=== PATIENT | female | born 1965 | race Two or more races ===

== ENCOUNTER 2020-08-28 08:06 | Outpatient (REF) | payer OTHER, SELFPAY ==
--- NOTE | ~2020-08-28 | MM_ITS ---
EXAMINATION: MM SCREENING DIGITAL BREAST TOMOSYNTHESIS, BILATERAL CLINICAL INFORMATION: Screening. Asymptomatic. The lifetime risk of breast cancer based on the Tyrer-Cuzick Model is 19%. COMPARISON: Mammography: 08/12/2019, 08/06/2018, 12/14/2017, 06/19/2017 TECHNIQUE: Digital breast tomosynthesis is performed in both the craniocaudal and mediolateral oblique views along with computer-aided detection (CAD). Synthesized 2D images are generated from the tomosynthesis. FINDINGS: There are scattered areas of fibroglandular density (ACR BI-RADS breast composition Category b). There are no significant masses, abnormal calcifications, or other abnormalities. Parenchymal pattern is similar to prior studies. No developing density. No significant changes. MM/MM tomosynthesis screening BI IMPRESSION: No mammographic evidence of malignancy. ASSESSMENT: BI-RADS 1: Negative RECOMMENDATION: Routine annual mammography screening. This patient's information was entered into a reminder system with a target due date for their next mammogram.
== END 2020-08-28 08:07 | disposition home or self-care (01) ==
LOC: HO.MAMMO 08:06
PROVIDERS: PCP Internal Medicine; Visit Provider Internal Medicine
DX: Z12.31 Encounter for screening mammogram for malignant neoplasm of breast (principal)
CPT/HCPCS: 77063; 77067

== ENCOUNTER 2020-09-17 08:55 | Outpatient (REF) | payer OTHER, SELFPAY ==
--- NOTE | ~2020-09-17 | XR_ITS ---
EXAMINATION: XR CERVICAL SPINE: 4 VIEWS XR THORACIC SPINE: 2 VIEWS XR LUMBAR SPINE: 3 VIEWS XR SHOULDERS, BILATERAL: 4 VIEWS EACH CLINICAL INFORMATION: Pain COMPARISON: None XR/XR cervical spine 2V FINDINGS/IMPRESSION: Cervical spine: No acute fracture or traumatic malalignment. There is a 2 mm anterolisthesis of C4 on C5 related to mild facet arthropathy which is present throughout the cervical spine. Endplate osteophytes and loss of disc space height noted at C5-C6 and C6-C7. Paraspinal soft tissues unremarkable. Thoracic spine: No acute fracture or traumatic malalignment. Mild levoconvex thoracic curvature, apex left at T9. Vertebral body heights maintained. Small endplate osteophytes project anteriorly from mid thoracic spine. Paraspinal soft tissues unremarkable. Lumbar spine: No acute fracture or traumatic malalignment. Mild dextro convex lumbar curvature, apex right at L3. Vertebral body heights maintained. Small endplate ossified present throughout the lumbar spine. Moderate loss of disc space height at L5-S1. Mild facet arthropathy at L4-L5 and L5-S1. Soft tissues unremarkable. Bilateral shoulders: No acute fracture or dislocation. Small marginal osteophytes present along the acromioclavicular joints bilaterally. Tiny marginal osteophytes along the inferior LEFT glenohumeral joint. Soft tissues unremarkable.
--- NOTE | ~2020-09-17 | XR_ITS ---
EXAMINATION: XR CERVICAL SPINE: 4 VIEWS XR THORACIC SPINE: 2 VIEWS XR LUMBAR SPINE: 3 VIEWS XR SHOULDERS, BILATERAL: 4 VIEWS EACH CLINICAL INFORMATION: Pain COMPARISON: None XR/XR lumbar spine 2-3V FINDINGS/IMPRESSION: Cervical spine: No acute fracture or traumatic malalignment. There is a 2 mm anterolisthesis of C4 on C5 related to mild facet arthropathy which is present throughout the cervical spine. Endplate osteophytes and loss of disc space height noted at C5-C6 and C6-C7. Paraspinal soft tissues unremarkable. Thoracic spine: No acute fracture or traumatic malalignment. Mild levoconvex thoracic curvature, apex left at T9. Vertebral body heights maintained. Small endplate osteophytes project anteriorly from mid thoracic spine. Paraspinal soft tissues unremarkable. Lumbar spine: No acute fracture or traumatic malalignment. Mild dextro convex lumbar curvature, apex right at L3. Vertebral body heights maintained. Small endplate ossified present throughout the lumbar spine. Moderate loss of disc space height at L5-S1. Mild facet arthropathy at L4-L5 and L5-S1. Soft tissues unremarkable. Bilateral shoulders: No acute fracture or dislocation. Small marginal osteophytes present along the acromioclavicular joints bilaterally. Tiny marginal osteophytes along the inferior LEFT glenohumeral joint. Soft tissues unremarkable.
--- NOTE | ~2020-09-17 | XR_ITS ---
EXAMINATION: XR CERVICAL SPINE: 4 VIEWS XR THORACIC SPINE: 2 VIEWS XR LUMBAR SPINE: 3 VIEWS XR SHOULDERS, BILATERAL: 4 VIEWS EACH CLINICAL INFORMATION: Pain COMPARISON: None XR/XR shoulder RT min 2V FINDINGS/IMPRESSION: Cervical spine: No acute fracture or traumatic malalignment. There is a 2 mm anterolisthesis of C4 on C5 related to mild facet arthropathy which is present throughout the cervical spine. Endplate osteophytes and loss of disc space height noted at C5-C6 and C6-C7. Paraspinal soft tissues unremarkable. Thoracic spine: No acute fracture or traumatic malalignment. Mild levoconvex thoracic curvature, apex left at T9. Vertebral body heights maintained. Small endplate osteophytes project anteriorly from mid thoracic spine. Paraspinal soft tissues unremarkable. Lumbar spine: No acute fracture or traumatic malalignment. Mild dextro convex lumbar curvature, apex right at L3. Vertebral body heights maintained. Small endplate ossified present throughout the lumbar spine. Moderate loss of disc space height at L5-S1. Mild facet arthropathy at L4-L5 and L5-S1. Soft tissues unremarkable. Bilateral shoulders: No acute fracture or dislocation. Small marginal osteophytes present along the acromioclavicular joints bilaterally. Tiny marginal osteophytes along the inferior LEFT glenohumeral joint. Soft tissues unremarkable.
--- NOTE | ~2020-09-17 | XR_ITS ---
EXAMINATION: XR CERVICAL SPINE: 4 VIEWS XR THORACIC SPINE: 2 VIEWS XR LUMBAR SPINE: 3 VIEWS XR SHOULDERS, BILATERAL: 4 VIEWS EACH CLINICAL INFORMATION: Pain COMPARISON: None XR/XR thoracic spine 2V FINDINGS/IMPRESSION: Cervical spine: No acute fracture or traumatic malalignment. There is a 2 mm anterolisthesis of C4 on C5 related to mild facet arthropathy which is present throughout the cervical spine. Endplate osteophytes and loss of disc space height noted at C5-C6 and C6-C7. Paraspinal soft tissues unremarkable. Thoracic spine: No acute fracture or traumatic malalignment. Mild levoconvex thoracic curvature, apex left at T9. Vertebral body heights maintained. Small endplate osteophytes project anteriorly from mid thoracic spine. Paraspinal soft tissues unremarkable. Lumbar spine: No acute fracture or traumatic malalignment. Mild dextro convex lumbar curvature, apex right at L3. Vertebral body heights maintained. Small endplate ossified present throughout the lumbar spine. Moderate loss of disc space height at L5-S1. Mild facet arthropathy at L4-L5 and L5-S1. Soft tissues unremarkable. Bilateral shoulders: No acute fracture or dislocation. Small marginal osteophytes present along the acromioclavicular joints bilaterally. Tiny marginal osteophytes along the inferior LEFT glenohumeral joint. Soft tissues unremarkable.
--- NOTE | ~2020-09-17 | XR_ITS ---
EXAMINATION: XR CERVICAL SPINE: 4 VIEWS XR THORACIC SPINE: 2 VIEWS XR LUMBAR SPINE: 3 VIEWS XR SHOULDERS, BILATERAL: 4 VIEWS EACH CLINICAL INFORMATION: Pain COMPARISON: None XR/XR shoulder LT min 2V FINDINGS/IMPRESSION: Cervical spine: No acute fracture or traumatic malalignment. There is a 2 mm anterolisthesis of C4 on C5 related to mild facet arthropathy which is present throughout the cervical spine. Endplate osteophytes and loss of disc space height noted at C5-C6 and C6-C7. Paraspinal soft tissues unremarkable. Thoracic spine: No acute fracture or traumatic malalignment. Mild levoconvex thoracic curvature, apex left at T9. Vertebral body heights maintained. Small endplate osteophytes project anteriorly from mid thoracic spine. Paraspinal soft tissues unremarkable. Lumbar spine: No acute fracture or traumatic malalignment. Mild dextro convex lumbar curvature, apex right at L3. Vertebral body heights maintained. Small endplate ossified present throughout the lumbar spine. Moderate loss of disc space height at L5-S1. Mild facet arthropathy at L4-L5 and L5-S1. Soft tissues unremarkable. Bilateral shoulders: No acute fracture or dislocation. Small marginal osteophytes present along the acromioclavicular joints bilaterally. Tiny marginal osteophytes along the inferior LEFT glenohumeral joint. Soft tissues unremarkable.
[2020-09-17 09:46] LABS: MANUAL DIFF FLAG NO
[2020-09-17 09:52] LABS: Basophils Percent Auto 0.6 % (0-2); Eosinophils Absolute Auto 0.1 X10*3/uL (0.0-0.4); Hematocrit 42.5 % (37-47); Hemoglobin 13.7 g/dl (12.0-16.0); Imm Gran Abs Auto 0.02 X10*3/uL (0.00-0.03); Imm Gran Pct Auto 0.3 % (0.0-0.4); Lymphocytes Absolute Auto 1.9 X10*3/uL (1.2-4.9); Lymphocytes Percent Auto 27.4 % (20-40); Mean Corpuscular HGB Conc 32.2 g/dl (31.0-35.0); Mean Corpuscular Hemoglobin 30.2 pg (27.0-33.0); Mean Corpuscular Volume 93.8 fL (80-98); Monocytes Absolute Auto 0.6 X10*3/uL (0.1-1.2); Monocytes Percent Auto 8.1 % (2-11); Neutrophils Absolute Auto 4.4 X10*3/uL (2.0-8.3); Neutrophils Percent Auto 62.6 % (45-73); Platelet Count 237 X10*3/uL (160-400); Red Blood Count 4.53 X10*6/uL (4.20-5.50); Red Cell Distribution Width 11.9 % (11.0-16.0); White Blood Count 7.1 X10*3/uL (4.8-10.8)
[2020-09-17 10:29] LABS: Alanine Aminotransferase 21 U/L (0-31); Alkaline Phosphatase 76 U/L (39-117); Anion Gap 11 (12-20); Aspartate Amino Transferase 21 U/L (5-31); Bilirubin Total 0.5 mg/dL (0.0-1.0); Blood Urea Nitrogen 11 mg/dL (9-16); Calcium 9.5 mg/dL (8.4-10.2); Carbon Dioxide 30 mmol/L (22-29); Chloride 104 mmol/L (96-108); Cholesterol 179 mg/dL; Estimated Glomerular Filt Rate > 60; Glucose Fasting 91 mg/dL (60-99); HDL Cholesterol 55 mg/dL; LDL Cholesterol Calculated 108 mg/dl; Sodium 140 mmol/L (135-145); Total Protein 6.6 g/dL (6.5-8.0); Triglycerides 81 mg/dL
[2020-09-17 10:44] LABS: Thyroid Stimulating Hormone 2.34 uIU/mL (0.32-4.0)
[2020-09-22 13:35] LABS: Vitamin D 25-OH, D2 <4 ng/mL; Vitamin D 25-OH, D3 32 ng/mL; Vitamin D 25-OH, Total 32 ng/mL (30-100)
== END 2020-09-17 08:56 | disposition home or self-care (01) ==
LOC: HO.LAB 08:55
PROVIDERS: PCP Internal Medicine; Visit Provider Internal Medicine
DX: M54.6 Pain in thoracic spine (principal); M54.5 Low back pain; M54.2 Cervicalgia; M25.511 Pain in right shoulder; M25.512 Pain in left shoulder; E78.5 Hyperlipidemia, unspecified; D64.9 Anemia, unspecified; E55.9 Vitamin D deficiency, unspecified; E66.3 Overweight
CPT/HCPCS: 36415; 72040; 72070; 72100; 73030; 80053; 80061; 82306; 84443; 85025

== ENCOUNTER 2020-10-12 12:37 | Outpatient (REF) | payer OTHER, SELFPAY ==
--- NOTE | ~2020-10-12 | XR_ITS ---
EXAMINATION: XR THORACIC SPINE CLINICAL INFORMATION: Back pain. COMPARISON: Thoracic spine radiographs dated 09/17/2020. TECHNIQUE: Mild levocurvature of the thoracic spine, unchanged. FINDINGS: The thoracic kyphosis is maintained. No acute fracture or subluxation. No loss of vertebral body height. Mild multilevel loss of intervertebral disc height with small anterior endplate osteophytes. No lytic or blastic osseous lesion. The visualized lungs are clear. XR/XR thoracic spine 3V IMPRESSION: Mild multilevel degenerative disc disease, similar when compared to the recent radiographs. No acute osseous abnormality.
== END 2020-10-12 12:38 | disposition home or self-care (01) ==
LOC: HO.HMGCX 12:37
PROVIDERS: PCP Internal Medicine; Visit Provider Physician Assistant Medical
DX: M54.9 Dorsalgia, unspecified (principal)
CPT/HCPCS: 72072

== ENCOUNTER 2020-11-09 11:00 | Outpatient (RCR) | payer OTHER, SELFPAY ==
--- NOTE | 2020-11-09 12:40 | MHC.PT.EP ---
[facility] [place] Office [place] [facility] [place] Office [address] Danica [place] [address] [phone] F: [phone] F: [phone] F: [phone] F: [phone] Physical Therapy Plan of Care Date of Evaluation: Date of Surgery: n/a Diagnosis: Back pain, B shoulder pain Assessment: Pt is 55 year old female who presents with neck/upper back pain and B shoulder pain R>L. She presents today with increased pain levels, decreased UE strength, impaired posture, and increase ttp of B UT. 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 Clinical presentation is consistent with posture related neck and shoulder pain and she would benefit from skilled PT to address her current impairments to allow return to PLOF. Frequency and Duration: The patient will be seen 2x per week x 4 weeks Short Term Goals: Pt will demonstrate pain <4/10 at rest in 2 weeks. Pt will demonstrate min to no pain with cervical AROM in available range in 2 weeks. Pt will demonstrate min to no pain with B shoulder AROM in available range in 2 weeks. Pt will demonstrate improved shoulder strength by 1/3 MMT for improved strength for duties at home and work in 2 weeks. Pt will demonstrate <2 cues in one session of PT for posture in 2 weeks. 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 Pt will demonstrate ability to complete a day of work with pain <3/10 in 4 weeks for improved tolerance to work. Pt will demonstrate ability to reach [place] with min to no pain in 4 weeks for improved tolerance to dressing. Treatment Plan: Modalities to reduce pain, spasms and effusion. Manual therapy to restore motion and function. Therapeutic exercise to improve strength and flexibility. Neuromuscular re-education for posture and balance. Therapeutic activities to return to functional activities of daily living. Electronically signed by: Kitty Jones, PT, DPT, ATC Please sign and return to therapist. Thank you for your referral.
--- NOTE | 2020-11-24 10:42 | MHC.PT.DC ---
[facility] [place] [facility] [place] [facility] [place] [facility] [address] Danica [place] [address] [phone] F: [phone] F: [phone] F: [phone] F: [phone] Physical Therapy Discharge Report Diagnosis: Back pain, B shoulder pain Date of Surgery: n/a Date of Evaluation: 11/09/20 Date of Discharge: Treatments to Date: 1 Cancellations to Date: No Shows to Date: 3 Discharge Status: Visit Non-compliance Discharge Summary: Pt no showed last 3 scheduled visits, status unknown. [ End ] Electronically signed by: Kitty Jones PT, DPT, ATC Please sign and return to therapist. Thank you for your referral.
== END 2020-11-24 10:42 | disposition home or self-care (01) ==
LOC: HO.PT 11:00
PROVIDERS: PCP Internal Medicine; Visit Provider Internal Medicine
DX: M25.511 Pain in right shoulder (principal); M25.512 Pain in left shoulder; M54.5 Low back pain
CPT/HCPCS: 97112; 97140; 97161

== ENCOUNTER 2021-08-17 10:42 | Outpatient (REF) | payer OTHER, SELFPAY | END 2021-08-17 10:43 | disposition home or self-care (01) | LOC: HO.MAMMO 10:42 | PROVIDERS: Visit Provider Internal Medicine | DX: Z13.89 Encounter for screening for other disorder (principal) ==

== ENCOUNTER 2021-09-01 09:05 | Outpatient (REF) | payer OTHER, SELFPAY ==
--- NOTE | ~2021-09-01 | MM_ITS ---
EXAMINATION: MM SCREENING DIGITAL BREAST TOMOSYNTHESIS, BILATERAL CLINICAL INFORMATION: Screening. Asymptomatic. The lifetime risk of breast cancer based on the Tyrer-Cuzick Model is 17%. COMPARISON: Mammography: 08/28/2020, 08/12/2019, 08/06/2018 TECHNIQUE: Digital breast tomosynthesis is performed in both the craniocaudal and mediolateral oblique views along with computer-aided detection (CAD). Synthesized 2D images are generated from the tomosynthesis. FINDINGS: There are scattered areas of fibroglandular density (ACR BI-RADS breast composition Category b). There are no significant masses, abnormal calcifications, or other abnormalities. The axilla and skin contours are unremarkable. No significant changes. MM/MM tomosynthesis screening BI IMPRESSION: No mammographic evidence of malignancy. ASSESSMENT: BI-RADS 1: Negative RECOMMENDATION: Routine annual mammography screening. This patient's information was entered into a reminder system with a target due date for their next mammogram.
== END 2021-09-01 09:06 | disposition home or self-care (01) ==
LOC: HO.MAMMO 09:05
PROVIDERS: Visit Provider Internal Medicine
DX: Z12.31 Encounter for screening mammogram for malignant neoplasm of breast (principal)
CPT/HCPCS: 77063; 77067

== ENCOUNTER 2022-01-11 10:23 | Outpatient (REF) | payer OTHER, SELFPAY ==
[2022-01-11 10:33] LABS: MANUAL DIFF FLAG NO
[2022-01-11 11:07] LABS: Basophils Absolute Auto 0.1 X10*3/uL (0.0-0.2); Basophils Percent Auto 0.8 % (0-2); Eosinophils Absolute Auto 0.1 X10*3/uL (0.0-0.4); Hematocrit 43.6 % (37.0-47.0); Hemoglobin 14.2 g/dl (12.0-16.0); Imm Gran Abs Auto 0.02 X10*3/uL (0.00-0.03); Imm Gran Pct Auto 0.2 % (0.0-0.4); Lymphocytes Absolute Auto 2.2 X10*3/uL (1.2-4.9); Lymphocytes Percent Auto 26.1 % (20-40); Mean Corpuscular HGB Conc 32.6 g/dl (31.0-35.0); Mean Corpuscular Volume 92.2 fL (80.0-98.0); Mean Platelet Volume 10.9 fL (9.4-12.3); Monocytes Absolute Auto 0.6 X10*3/uL (0.1-1.2); Monocytes Percent Auto 7.5 % (2-11); Neutrophils Absolute Auto 5.3 x10*3/uL (2.0-8.3); Neutrophils Percent Auto 64.4 % (45-73); Platelet Count 298 X10*3/uL (160-400); Red Blood Count 4.73 X10*6/uL (4.20-5.50); Red Cell Distribution Width 12.5 % (11.0-16.0); White Blood Count 8.3 X10*3/uL (4.8-10.8)
[2022-01-11 12:07] LABS: Alanine Aminotransferase 22 U/L (0-31); Albumin Level 4.1 g/dL (3.5-5.0); Alkaline Phosphatase 78 U/L (39-117); Anion Gap 13 (12-20); Aspartate Amino Transferase 22 U/L (5-31); Bilirubin Total 0.4 mg/dL (0.0-1.0); Blood Urea Nitrogen 14 mg/dL (9-16); Calcium 9.4 mg/dL (8.4-10.2); Carbon Dioxide 30 mmol/L (22-29); Chloride 106 mmol/L (96-108); Cholesterol 230 mg/dL; Estimated Glomerular Filt Rate > 60; Glucose Fasting 88 mg/dL (60-99); HDL Cholesterol 60 mg/dL; LDL Cholesterol Calculated 154 mg/dl; Potassium 5.2 mmol/L (3.3-5.1); Sodium 144 mmol/L (135-145); Thyroid Stimulating Hormone 1.47 uIU/mL (0.32-4.0); Total Protein 6.9 g/dL (6.5-8.0); Triglycerides 81 mg/dL; Vitamin D 25-OH Total 37.1 ng/mL (>30)
== END 2022-01-11 10:24 | disposition home or self-care (01) ==
LOC: HO.LAB 10:23
PROVIDERS: PCP Internal Medicine; Visit Provider Internal Medicine
DX: Z00.00 Encounter for general adult medical examination without abnormal findings (principal); E78.5 Hyperlipidemia, unspecified; R53.82 Chronic fatigue, unspecified
CPT/HCPCS: 36415; 80053; 80061; 82306; 84443; 85025

== ENCOUNTER 2022-01-26 11:30 | Outpatient (REF) | payer OTHER, SELFPAY ==
[2022-01-26 13:08] LABS: Alanine Aminotransferase 42 U/L (0-31); Albumin Level 3.9 g/dL (3.5-5.0); Alkaline Phosphatase 65 U/L (39-117); Anion Gap 11 (12-20); Aspartate Amino Transferase 26 U/L (5-31); Bilirubin Total 0.5 mg/dL (0.0-1.0); Blood Urea Nitrogen 10 mg/dL (9-16); Calcium 9.5 mg/dL (8.4-10.2); Carbon Dioxide 31 mmol/L (22-29); Chloride 104 mmol/L (96-108); Estimated Glomerular Filt Rate > 60; Glucose Random 84 mg/dL (60-115); Potassium 4.9 mmol/L (3.3-5.1); Sodium 141 mmol/L (135-145); Total Protein 6.6 g/dL (6.5-8.0)
== END 2022-01-26 11:31 | disposition home or self-care (01) ==
LOC: HO.LAB 11:30
PROVIDERS: PCP Internal Medicine; Visit Provider Internal Medicine
DX: E87.5 Hyperkalemia (principal)
CPT/HCPCS: 36415; 80053

== ENCOUNTER 2022-09-19 11:40 | Outpatient (REF) | payer OTHER, SELFPAY ==
--- NOTE | ~2022-09-19 | MM_ITS ---
EXAMINATION: MM SCREENING DIGITAL BREAST TOMOSYNTHESIS, BILATERAL CLINICAL INFORMATION: Screening. Asymptomatic. The lifetime risk of breast cancer based on the Tyrer-Cuzick Model is 16.8%. COMPARISON: Mammography: This study is compared with prior exams dating back to 2018. TECHNIQUE: Digital breast tomosynthesis is performed in both the craniocaudal and mediolateral oblique views along with computer-aided detection (CAD). Synthesized 2D images are generated from the tomosynthesis. FINDINGS: There are scattered areas of fibroglandular density (ACR BI-RADS breast composition Category b). There are no significant masses, abnormal calcifications, or other abnormalities. MM/MM tomosynthesis screening BI IMPRESSION: No mammographic evidence of malignancy. ASSESSMENT: BI-RADS BI-RADS 1 - Negative RECOMMENDATION: Routine annual mammography screening. 1 year F/U This examination should not preclude the clinical evaluation of a suspicious palpable abnormality. This patient's information was entered into a reminder system with a target due date for their next mammogram.
== END 2022-09-19 11:41 | disposition home or self-care (01) ==
LOC: HO.MAMMO 11:40
PROVIDERS: PCP Internal Medicine; Visit Provider Internal Medicine
DX: Z12.31 Encounter for screening mammogram for malignant neoplasm of breast (principal)
CPT/HCPCS: 77063; 77067

== ENCOUNTER → 2022-09-19 11:45 | Outpatient (BNV) | payer OTHER, SELFPAY | PROVIDERS: PCP Internal Medicine; Visit Provider Radiology Diagnostic Radiology | DX: Z12.31 Encounter for screening mammogram for malignant neoplasm of breast (principal) | CPT/HCPCS: 77063; 77067 ==

== ENCOUNTER 2022-09-29 09:02 | Outpatient (AMB) | payer OTHER, SELFPAY ==
--- NOTE | 2022-09-29 09:08 | A.OFFPC_ITS ---
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 Accompanied by: Self / Same As Patient Allergies No Known Allergies [No Known Allergies*] Allergy (Verified 09/29/22 09:21) Medication List - Last Reconciled 09/29/22 by Veena Pisano MD albuterol sulfate 2.5 mg inhalation Q6H budesonide 90 mcg/actuation 1 inh inhalation BID 30 days Tobacco use date assessed: 09/29/22 Dental Screening Dental Screen Date: 09/29/22 Did you have a dental visit in the last 12 months?: Yes Did you have a dental problem in the last 6 months where you did not have access to dental care?: No Was dental information given to patient?: Patient has dentist HPI HPI Comments History of Present Illness Details This is a 56-year-old female with mild major depression that comes for her physical exam. Depression is follow by counseling and she declines any medications. Last mammogram was last month. No need for Pap smears due to hysterectomy. Last colonoscopy was 2018 and was normal. Denies any chest pain or shortness of breath. 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 1. Little interest or pleasure in doing things: several days 2. Feeling down, depressed, or hopeless: several days 3. Trouble falling or staying asleep, or sleeping too much: several days 4. Feeling tired or having little energy: several days 5. Poor appetite or overeating: not at all 6. Feeling bad about yourself - or that you are a failure or have let yourself or your family down: not at all 7. Trouble concentrating on things, such as reading the newspaper or watching television: not at all 8. Moving or speaking so slowly that other people could have noticed. Or the opposite - being so fidgety or restless that you have been moving around a lot more than usual: several days 9. Thoughts that you would be better off or of hurting yourself in some way: not at all Total score: 5 Depression Screening Interpretation: Positive Depression Screening Follow-up: Existing condition, In treatment and Community Mental Health Worker F/U 77976 - PHQ-9 Billing: Yes Source: Developed by Drs. Floyd Garcia, Yumiko Angelo, David Rosales and colleagues, with an educational stanley from [employer]. Thrive Questionnaire Date Thrive assessed: 09/29/22 I am a: Patient What is your living situation today?: I have a steady place to live Within the past 12 months, did the food you bought not last and you didn't have the money to get more?: Never true Within the past 12 months, did you worry whether your food would run out before you got money to buy more?: Never true Do you have trouble paying for medicines?: No Do you have trouble getting transportation to medical appointments?: No Do you have trouble paying your heating and electricity bill?: No Do you have trouble taking care of your child, family member or friend?: No Do you have trouble with day-to-day activities such as bathing, preparing meals, shopping, managing finances, etc.?: No Are you currently unemployed and looking for a job?: No Are you interested in more education?: No Please select the resources that you would like help with: None Currently or been in a relationship where the following occur: no concerns reported AUDIT C Alcohol Use Questionnaire (AUDIT-C) 1. How often do you have a drink containing alcohol?: Never Total Score: 0 NATHAN-7 AMB Questionnaire NATHAN-7 Date NATHAN - 7 assessed: 09/29/22 Feeling nervous, anxious, or on edge: 1 = Several days Not being able to stop or control worryin = Not at all Worrying too much about different things: 1 = Several days Trouble relaxin = Not at all Being so restless that it is hard to sit still: 0 = Not at all Becoming easily annoyed or irritable: 0 = Not at all Feeling afraid as if something awful might happen: 0 = Not at all Total NATHAN-7 score (0-4 normal; 5-9 mild; 10-14 moderate; 15-21 severe): 2 Source: Developed by Drs. Floyd Garcia, Yumiko Angelo, David Rosales and colleagues, with an educational stanley from [employer]. NATHAN-7 Assessment Billing NATHAN-7 Assessment Tool: NATHAN-7 Assessment 26935 Review of Systems Const All systems reviewed & are unremarkable except as noted in HPI and below Eyes Reports no additional complaints, Denies change in vision and Denies other visual disturbances Card Denies chest pain at rest, Denies chest pain with activity, Denies edema, Denies irregular heart rhythm, Denies claudication, Denies dyspnea, Denies dyspnea on exertion, Denies orthopnea, Denies paroxysmal nocturnal dyspnea and Denies slow heart rate Resp Denies cough, Denies dyspnea and Denies dyspnea on exertion GI Denies abdominal pain, Denies change in bowel habits, Denies excessive flatus, Denies nausea and Denies vomiting Denies urinary incontinence, Denies urinary hesitancy and Denies urinary urgency Musc Denies abnormal gait, Denies atrophy, Denies deformity and Denies limited range of motion Skin/Breast Denies bleeding lesions, Denies changing lesions and Denies rash Neuro Denies abnormal gait and Denies lack of coordination Physical exam (Primary Care) Vital Signs: Last Vital Signs BP 110/80 09/29/22 09:09 BMI result Body Mass Index 26.3 Tobacco/Smoking Status: Tobacco use Status Tobacco use date assessed 09/29/22 09/29/22 09:14 Patient Tobacco Use Status Never used Tobacco 09/29/22 09:11 e-Cigarette/Vaping Use Never Used 09/29/22 09:11 PHQ-9: PHQ-9 Score PHQ-9: Total score 5 09/29/22 09:28 Depression Screening Interpretation: Positive Depression Screening Follow-up: Ex isting condition, In treatment and Community Mental Health Worker F/U Thrive Assessment: Date of Thrive Assessment Date Thrive assessed 09/29/22 09/29/22 09:14 Currently or been in a relationship where the following occur: no concerns reported Const Orientation/consciousness: patient oriented x3 HENMT Head: Yes normal to inspection, Yes normocephalic and Yes atraumatic Ears: external ears normal Eyes General: appearance normal, both eyes and all related structures Eyelids: Yes eyelids normal Conjunctivae: conjunctivae normal Neck Neck: Yes normal visual inspection and Yes supple Resp Effort & Inspection: normal respiratory effort Auscultation: clear to auscultation bilaterally Cardio Jugular venous distension: no JVD Rate: regular rate Rhythm: regular rhythm Heart sounds: S1 normal heart sound present and S2 normal heart sound present GI Inspection: Yes normal to inspection Palpation (GI): Soft to palpation and nontender Auscultation: normal bowel sounds Skin General skin exam: no rashes or lesions noted Neuro General: patient oriented x3 and no focal motor deficits Extrem General: Yes full ROM Psych Appearance: grossly normal Assessment and Plan Assessment & Plan (1) Physical exam: Code(s): Z00.00 - Encounter for general adult medical examination without abnormal findings Plan: R repeat in a year (2) Mild recurrent major depression: Code(s): F33.0 - Major depressive disorder, recurrent, mild Plan: Continue counseling. Orders: Orders Comprehensive [place]. Panel Fast Today E78.00 - Pure hypercholesterolemia, unspecified Lipid Panel Today E78.5 - Hyperlipidemia, unspecified Medications: New terbinafine HCl 250 mg PO DAILY 90 tabs 0RF 90 days B35.1 - Tinea unguium Coding Level of Care Code Est Pt Prev Care 40-64y(64987) Diagnoses Physical exam Z00.00 Mild recurrent major depression F33.0 Additional Codes NATHAN-7 Assessment Billing - NATHAN-7 Assessment Tool: NATHAN-7 Assessment [id number] ([id number]) Time Spent (min) 32
[2022-09-29 09:09] VITALS: BP 110/80; BMI 26.3
== END 2022-09-29 09:36 | disposition home or self-care (01) ==
PROVIDERS: PCP Internal Medicine; Visit Provider Internal Medicine
DX: Z00.00 Encounter for general adult medical examination without abnormal findings (principal); F33.0 Major depressive disorder, recurrent, mild
CPT/HCPCS: 99396

== ENCOUNTER 2022-10-06 10:08 | Outpatient (REF) | payer OTHER, SELFPAY ==
[2022-10-06 11:10] LABS: Alanine Aminotransferase 16 U/L (0-31); Albumin Level 3.9 g/dL (3.5-5.0); Alkaline Phosphatase 78 U/L (39-117); Anion Gap 8 (12-20); Aspartate Amino Transferase 17 U/L (5-31); Bilirubin Total 0.4 mg/dL (0.0-1.0); Blood Urea Nitrogen 12 mg/dL (9-16); Calcium 9.7 mg/dL (8.4-10.2); Carbon Dioxide 30 mmol/L (22-29); Chloride 107 mmol/L (96-108); Cholesterol 192 mg/dL; Estimated Glomerular Filt Rate > 60; Glucose Fasting 94 mg/dL (60-99); HDL Cholesterol 50 mg/dL; LDL Cholesterol Calculated 119 mg/dl; Potassium 4.3 mmol/L (3.3-5.1); Sodium 141 mmol/L (135-145); Total Protein 6.9 g/dL (6.5-8.0); Triglycerides 119 mg/dL
== END 2022-10-06 10:09 | disposition home or self-care (01) ==
LOC: HO.LAB 10:08
PROVIDERS: PCP Internal Medicine; Visit Provider Internal Medicine
DX: E78.5 Hyperlipidemia, unspecified (principal); E78.00 Pure hypercholesterolemia, unspecified
CPT/HCPCS: 36415; 80053; 80061

== ENCOUNTER 2023-01-06 15:21 | Outpatient (AMB) | payer OTHER, SELFPAY ==
[2023-01-06 15:22] VITALS: BP 122/78; PULSE 72; TEMP 36.6; O2SAT 99; BMI 26.3
--- NOTE | 2023-01-06 15:22 | MHC.OFFWIV ---
Intake Vital Signs 01/06/23 15:22 Height 5 ft 6 in Weight 163 lb BMI 26.3 BP 122/78 Blood Pressure Location Lt brachial Position Standing Pulse 72 Pulse Source Pulse Oximeter Temp 97.8 F Temp Source Temporal Artery Scan Pulse Oximetry (%) 99 Intake Visit Reasons: EST/back pain (lobby) Intake Note: pt is here for c/o back pain due to fall today Patient Tobacco Use Status: Never used Tobacco Allergies No Known Allergies [No Known Allergies*] Allergy (Verified 01/06/23 15:22) Do you need a note to return to daycare/school/sports/work: Yes HPI HPI Comments History of Present Illness Details This is a 57-year-old female who presents to the office today for sick visit. Patient complaining of acute onset right-sided low back pain that began earlier today. Patient states she bent over while cleaning her house and then stood up quickly and immediately felt pain in her right low back. She denies any numbness/weakness/paresthesias of her extremities. She denies any bowel/bladder incontinence/retention. She denies any saddle anesthesias. 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 Current occupational exposures/hazards: No Cognitive needs: No Hearing needs: No Vision needs: No Review of Systems Const All systems reviewed & are unremarkable except as noted in HPI and below Reports no additional complaints Eyes Reports no additional complaints ENT Reports no additional complaints Card Reports no additional complaints Resp Reports no additional complaints GI Reports no additional complaints Reports no additional complaints Musc Reports no additional complaints Skin/Breast Reports system reviewed and no additional complaints, except as documented Neuro Reports no additional complaints Psych Reports no additional complaints Endo Reports no additional complaints Girish/Lymph Reports no additional complaints Aller/Immun Reports no additional complaints Physical Exam Const Other: Vital signs reviewed. Constitutional: Non-toxic appearing. No acute distress. Well-developed and well-nourished. HEENT: Normocephalic and atraumatic. Skin: Warm and dry. No rashes or lesions noted. Neck: Full and painless range of motion. No cervical lymphadenopathy. Cardio: Regular rate. No lower extremity edema. No JVD. Pulmonary: No respiratory distress. No accessory muscle usage. Gastrointestinal: Soft, nontender, and nondistended in all 4 quadrants. Musculoskeletal: The patient is walking with an antalgic gait. She has tenderness to palpation of the right lumbar paraspinal musculature as well as palpable muscle spasms. No midline or spinous process tenderness to palpation. Neuro: Alert and oriented x4. Cranial nerves 2-12 grossly intact. No focal deficits appreciated. Psych: Normal mood and affect. Assessment & Plan Assessment & Plan (1) Lumbar paraspinal muscle spasm: Code(s): M62.830 - Muscle spasm of back Plan: This is a 57-year-old female presenting to the office complaining acute onset right-sided lower back pain that began after standing up quickly earlier today. On physical examination, she has tenderness to palpation and palpable muscle spasms of the right paraspinal musculature the lumbar spine. History and physical most consistent with a lumbar sprain/strain with paraspinal muscle spasm. She has no red flag symptoms or radicular symptoms. Patient has been sent home on p.o. cyclobenzaprine 10 mg 3 times daily as needed for muscle spasms. Recommended symptomatic management including heat to the area, daily lidocaine patches, and PO celecoxib 200 mg twice daily as needed for pain. Patient verbalizes her understanding and she is in agreement with the plan. Medications: New cyclobenzaprine 10 mg PO TID PRN 20 tabs 0RF muscle spasm celecoxib 200 mg PO BID PRN 14 caps 0RF pain Coding Level of Care Code Est Pt Level 3 (60820) Diagnoses Lumbar paraspinal muscle spasm M62.830
== END 2023-01-06 15:50 | disposition home or self-care (01) ==
PROVIDERS: PCP Internal Medicine; Visit Provider Physician Assistant Medical
DX: M62.830 Muscle spasm of back (principal)
CPT/HCPCS: 99213

== ENCOUNTER 2023-01-08 18:26 | Emergency (ER) | payer OTHER, SELFPAY ==
--- NOTE | ~2023-01-08 | XR_ITS ---
EXAMINATION: XR LUMBOSACRAL SPINE CLINICAL INFORMATION: Back pain COMPARISON: 09/16/2020 TECHNIQUE: Three views of the lumbosacral spine. FINDINGS: Mild right convex lumbar scoliosis. No fractures. No spondylolisthesis. Facet arthropathy is present in the lower lumbar spine at L4 and L5. There is moderate degenerative disc disease at L5-S1 and more minimal degenerative disc disease at the other levels. Vertebral body heights are normal. SI joints are unremarkable. No acute soft tissue abnormalities XR/XR lumbar spine 2-3V IMPRESSION: 1. Moderate degenerative disc disease at L5-S1. 2. Facet arthropathy in the lower lumbar spine. 3. No acute osseous findings.
[2023-01-08 19:09] VITALS: BP 123/50; PULSE 82; RESP 18; TEMP 36.7; O2SAT 98; BMI 26.7
--- NOTE | 2023-01-08 19:09 | ED.GENADULT ---
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 Patient states this occurred today. Patient denies any nausea, vomitting, fever, or chills. Patient states no dysuria, or hematuria. Patient is menopausa. Patient states no abdominal painl Related Data Home Medications Medication Instructions Recorded Confirmed albuterol sulfate 2.5 mg/3 mL 2.5 mg inhalation Q6H 01/26/22 09/29/22 (0.083 %) solution for nebulization Previous Rx's Medication Instructions Recorded budesonide 90 mcg/actuation breath 1 inh inhalation BID 30 days #1 ea 01/27/22 activated powder inhaler terbinafine HCl 250 mg tablet 250 mg PO DAILY 90 days #90 tabs 09/29/22 celecoxib 200 mg capsule 200 mg PO BID PRN pain #14 caps 01/06/23 cyclobenzaprine 10 mg tablet 10 mg PO TID PRN muscle spasm #20 01/06/23 tabs cyclobenzaprine 10 mg tablet 10 mg PO TID PRN muscle spasm 5 01/08/23 days #15 tabs ketorolac 10 mg tablet 10 mg PO Q6H PRN pain 5 days #20 01/08/23 tabs Allergies Allergy/AdvReac Type Severity Reaction Status Date / Time No Known Allergies Allergy Verified 01/06/23 15:22 [No Known Allergies*] Review of Systems Review of Systems: Right lower back pain Yes all other systems are reviewed and are negative [facility] Past Medical History Medical History (Updated 01/09/23 @ 00:01 by Luis Parker) Onychomycosis Pelvic pain in female Hyperkalemia Physical exam Back pain Osteoarthritis Anxiety PTSD (post-traumatic stress disorder) Fingernail problem Right shoulder pain Left shoulder pain Lumbar pain Thoracic spine pain Neck pain Overweight Hypovitaminosis D Mild asthma Surgical History H/O: hysterectomy Family History Family History Mother High blood pressure Father Cancer Social History Social History Housing: House Alcohol intake: never Patient Tobacco Use Status: Never used Tobacco Smoked in Last 30 Days: No e-Cigarette/Vaping Use: Never Used Second Hand Smoke Exposure: Yes Use of substances other than those prescribed or required for medical reasons: No Advance Directives: No service: No Current occupational status: employed 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 Current occupational exposures/hazards: No Cognitive needs: No Hearing needs: No Vision needs: No Physical Exam ED Vital Signs: Vital Signs - 24 hr 01/08/23 19:09 01/08/23 22:22 Temperature 98.0 F 98.1 F Pulse Rate 82 77 Respiratory Rate 18 18 Blood Pressure 123/50 L 126/61 Pulse Oximetry 98 99 Oxygen Delivery Method Room Air Room Air BMI result Body Mass Index 26.7 Const General: cooperative, healthy appearing, comfortable, no acute distress, well developed, alert, awake and Physically active Orientation/consciousness: oriented to person, oriented to place, oriented to time and patient oriented x3 HENMT Head: Yes normal to inspection, Yes No palpable skull fracture present, Yes normocephalic and Yes atraumatic Eyes General: appearance normal, both eyes and all related structures Neck Neck: Yes normal visual inspection, Yes full ROM, Yes no lymphadenopathy, Yes no meningeal signs, Yes trachea midline, Yes supple, No anterior neck swelling and No tender Chest Chest palpation & inspection: normal inspection of the chest and normal palpation of entire chest wall Resp Effort & Inspection: normal respiratory effort and able to speak in complete sentences Auscultation: clear to auscultation bilaterally Cardio Jugular venous distension: no JVD Heart sounds: S1 normal heart sound present and S2 normal heart sound present GI Inspection: Yes normal to inspection and No abdominal wall ecchymosis Palpation (GI): Soft to palpation, not firm, nontender, no guarding and not rigid General: Yes no CVA tenderness Back/Spine/Pelvis Other: negative for spine tenderness. positive for back pain on range of motion. Back: no CVA tenderness and back tenderness (right muscluar lumbar pain.) Skin General skin exam: no rashes or lesions noted, elasticity normal and turgor normal Neuro General: oriented to person, oriented to place, oriented to time, patient oriented x3, gait normal, tone normal, moves all extremities, Normal light touch and pain sensation, no meningeal signs, no focal motor deficits, CN's II-XI intact bilaterally and normal sensation to monofilament Extrem General: Yes normal to inspection and Yes full ROM Psych Appearance: grossly normal, well kempt and not disheveled Course Course Course Narrative: RME performed by Marixa Ac PA-C. Patient is a 57 year old assigned female at , with a history of chronic back pain, presenting to the emergency department with back pain. Patient placed back in the waiting room pending room availability. Medications Administered Discontinued Medications Generic Name Dose Route Start Last Admin Trade Name Freq PRN Reason Stop Dose Admin Cyclobenzaprine HCl 10 mg 01/08/23 20:38 01/08/23 21:02 Cyclobenzaprine Hcl 10 Mg Tablet PO 01/08/23 20:39 10 mg ONCE ONE Administration Ketorolac Tromethamine 30 mg 01/08/23 20:38 01/08/23 21:02 Ketorolac Tromethamine 30 Mg/Ml Vial IM 01/08/23 20:39 30 mg ONCE ONE Administration Medical Decision Making Medical Decision Making [facility] Narrative: 57-year-old female presents to the ED for right lower pain worse on movement since the day after bending down to medicinal plant picker objects. Patient denies any blunt trauma, dysuria, hematuria,/bowel incontinence, IV drug use, history of an HIV/hep C. Patient will be given pain medication and lumbar x-ray and urine ordered. Patient denies any urinary/bowel incontinence. 10:29pm: xray positive for lumbar radiculopathy. negative for fractures. UA negative for infection Differential Diagnosis Differential Diagnoses: The differential diagnosis associated with the presentation includes ( Muscles sprain, muscle spasm, spinal fracture, pyelonephritis, UTI, kidney stone) Admission/Observation Consideration of admission/observation: Escalation of care including admission/observation considered Lab Data [facility] Lab Attestation statement: I reviewed the patient's lab results. Labs: Lab Results 01/08/23 Range/Units 21:00 Urine Color Yellow Urine Appearance Clear Urine pH 5.5 (5.0-9.0) Ur Specific Lutts 1.020 (1.005-1.025) Urine Protein Negative (Neg-Trace) mg/dL Urine Glucose (UA) Negative (Negative) mg/dL Urine Ketones Negative (Negative) mg/dL Urine Blood Negative (Negative) Urine Nitrite Negative (Negative) Ur Leukocyte Esterase Small (1+) H (Negative) Urine RBC 0-2 (0-2) /HPF Urine WBC 0-5 (0-5) /HPF Ur Squamous Epith Cells 0-2 (0-2) /HPF Urine Bacteria None Seen (None Seen) Hyaline Casts 0-2 (0-2) /LPF Independent Interpretation I performed an independent interpretation of an: Plain X-Ray Radiology Impression Discussion of test interpretation with radiology: I have reviewed the radiologist's reading. Independent Historian Clinical information obtained from an independent historian. History obtained from or confirmed by: Other (Son) External Record Review External record reviewed: Other (Previous ED visit) Prescription Management I considered prescription management with: Pain Medication Discharge Plan Discharge Clinical Impression: Lumbar radiculopathy, Lumbar back sprain Patient Disposition: Home, Self-Care Instructions: Lumbar Radiculopathy (ED), Back Pain (ED) Additional Instructions: Nielson radiograf?a mostr? amalia enfermedad degenerativa del disco. Nielson orina result? negativa para infecci?n. Siga con nielson proveedor de atenci?n primaria. Le abhinav?n el kelvin con analg?sicos y relajantes musculares. Regrese al servicio de urgencias de inmediato si presenta n?useas, v?mitos, incontinencia urinaria/intestinal, hematuria, disuria, fiebre, escalofr?os, dolor en el costado, entumecimiento/hormigueo/par?lisis de las extremidades inferiores o cualquier otro s?ntoma preocupante. No tome pastora?n otro TIERRA con ketorolaco. Prescriptions: New cyclobenzaprine 10 mg tablet 10 mg PO TID PRN (Reason: muscle spasm) 5 Days Qty: 15 0RF Rx Instructions: side effect is drowsiness. Do not take at work or while driving. ketorolac 10 mg tablet 10 mg PO Q6H PRN (Reason: pain) 5 Days Qty: 20 0RF Rx Instructions: recieved 30mg IM in the ED. No Action budesonide 90 mcg/actuation aerosol powdr breath activated 1 inh inhalation BID 30 Days Qty: 1 1RF terbinafine HCl 250 mg tablet 250 mg PO DAILY 90 Days Qty: 90 0RF cyclobenzaprine 10 mg tablet 10 mg PO TID PRN (Reason: muscle spasm) Qty: 20 0RF celecoxib 200 mg capsule 200 mg PO BID PRN (Reason: pain) Qty: 14 0RF albuterol sulfate 2.5 mg /3 mL (0.083 %) solution for nebulization 2.5 mg inhalation Q6H Stand Alone Forms: Work/School Release Interventions: ED Discharge Assessment Last Done: 01/08/23 22:53 Discharge Date/Time: 01/08/23 22:54 Print Language: Ukrainian
[2023-01-08] MEDS: Cyclobenzaprine HCl 10 MG TABLET PO (21:02)
[2023-01-08] MEDS: Ketorolac Tromethamine 30 MG/ML VIAL IM (21:02)
[2023-01-08 21:09] LABS: Appearance Urine Clear; Color Urine Yellow; Glucose Urine UA Negative (Negative); Leukocyte Esterase Urine Small (1+) (Negative); Nitrite Urine Negative (Negative); PH 5.5 (5.0-9.0); UMIC TRIGGER UACC YES; Urine Blood Negative (Negative); Urine Ketones Negative (Negative); Urine Protein Negative (Neg-Trace)
[2023-01-08 21:26] LABS: Bacteria Urine None Seen (None Seen); Hyaline Casts Urine 0-2 /LPF (0-2); RBC Urine 0-2 /HPF (0-2); Squamous Epithelial Cell Urine 0-2 /HPF (0-2); UACC Culture Trigger YES; WBC Urine 0-5 /HPF (0-5)
[2023-01-08 22:22] VITALS: BP 126/61; PULSE 77; RESP 18; TEMP 36.7; O2SAT 99
== END 2023-01-08 22:54 | disposition home or self-care (01) ==
PROVIDERS: Physician Assistant; Emergency Provider Student in an Organized Health Care Education/Training Program; PCP Internal Medicine
DX: M54.16 Radiculopathy, lumbar region (principal); S33.5XXA Sprain of ligaments of lumbar spine, initial encounter; X50.9XXA Other and unspecified overexertion or strenuous movements or postures, initial encounter; Y93.9 Activity, unspecified; Y92.9 Unspecified place or not applicable; Y99.9 Unspecified external cause status; E78.00 Pure hypercholesterolemia, unspecified
CPT/HCPCS: 72100; 81001; 87086; 96372; 99284; J1885

== ENCOUNTER 2023-03-01 11:25 | Outpatient (REF) | payer OTHER, SELFPAY | END 2023-03-01 11:26 | disposition home or self-care (01) | LOC: HO.LNP 11:25 | PROVIDERS: PCP Internal Medicine; Visit Provider Advanced Practice Midwife | DX: Z01.419 Encounter for gynecological examination (general) (routine) without abnormal findings (principal); N89.8 Other specified noninflammatory disorders of vagina; R10.2 Pelvic and perineal pain; F43.10 Post-traumatic stress disorder, unspecified; Z87.42 Personal history of other diseases of the female genital tract; Z90.710 Acquired absence of both cervix and uterus | CPT/HCPCS: 0353U; 87480; 87510; 87624; 87660; 88142; 99386 ==

== ENCOUNTER 2023-03-01 11:25 | Outpatient (AMB) | payer OTHER, SELFPAY ==
--- NOTE | 2023-03-01 11:35 | MHC.OFFVIS ---
Intake Vital Signs 03/01/23 11:36 Height 5 ft 6 in Weight 159 lb BMI 25.7 BP 124/76 Intake Visit Reasons: New patient Annual Intake Note: Having white discharge, and having pelvic pain Housetrailer Servicer Required: Yes Housetrailer Servicer Language: Hungarian Information Interpreted: non-clinical & clinical Slip Filler: Slip Filler Present (Connie) Allergies No Known Allergies [No Known Allergies*] Allergy (Verified 03/01/23 11:38) Medication List - Last Reconciled 03/01/23 by Anita Li CNM albuterol sulfate 2.5 mg inhalation Q6H budesonide 90 mcg/actuation 1 inh inhalation BID 30 days Is last menstrual period known: No Patient : No HPI New patient Annual HPI Details 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 She had a hysterectomy done in [place]. She remembers that she had some abnormal cells and they did some freezing on her cervix and then later did a hysterectomy.. She has had a pain in right and left lower pelvic area that comes and goes for years. It seems to her that sometime she also has more discharge when she has more pain but she is not exactly sure she has not been sexually active since last year. She is aware of the thinning of vaginal mucosa and other postmenopausal changes she has not had a period in years. [facility] Medical History (Updated 03/01/23 @ 12:38 by Anita Li CNM) Onychomycosis Pelvic pain in female Hyperkalemia Physical exam Back pain Osteoarthritis Anxiety PTSD (post-traumatic stress disorder) Fingernail problem Right shoulder pain Left shoulder pain Lumbar pain Thoracic spine pain Neck pain Overweight Hypovitaminosis D Mild asthma Surgical History (Updated 03/01/23 @ 12:38 by Anita Li CNM) Hx of tubal ligation H/O: hysterectomy Family History (Updated 03/01/23 @ 11:41 by IDALIA Prince) Mother High blood pressure Father Cancer Sister Breast cancer Social History Housing: House Alcohol intake: never Patient Tobacco Use Status: Never used Tobacco e-Cigarette/Vaping Use: Never Used Second Hand Smoke Exposure: Yes service: No Current occupational status: employed 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 Current occupational exposures/hazards: No Cognitive needs: No Hearing needs: No Vision needs: No Female Reproductive History Menstrual Age of Menarche: 11 control method: permanent sterilization Total pregnancies: 2 Full term: 2 Ab spontaneous: 1 Multiple births: 1 Date of last pap smear: 08/05/16 Date of Mammogram: 09/19/22 Physical Exam Vital Signs: Last Vital Signs BP 124/76 03/01/23 11:36 BMI result Body Mass Index 25.7 Const General: healthy appearing, comfortable, no acute distress, well developed and alert Nutritional Appearance: average body habitus Orientation/consciousness: patient oriented x3 Limitations: no limitations HEENT Head: Yes normocephalic Neck Neck: Yes normal visual inspection Chest Chest palpation & inspection: normal inspection of the chest Breast/axilla inspection: normal inspection of the breasts and normal inspection of the axillae Breast/axilla palpation: normal palpation of the breasts and normal palpation of the axillae Resp Effort & Inspection: normal respiratory effort GI Inspection: Yes normal to inspection, No Abdominal wall edema and No distended Palpation (GI): Soft to palpation and nontender Other: Has a very well-healed barely visible low transverse scar abdominally Patient presses he here on right and left sides describing where she sometimes gets her pain Vagina pink mucosal membrane somewhat thin her slightly reddened consistent with postmenopausal changes No cervix visible or palpable vaginal cuff very well-healed patient was slightly tender with Pap and cultures. Very good tone with Kegel no adnexal tenderness or enlargement uterus is absent> General: Yes bladder normal to palpation External Female Exam: normal external appearance and normal appearance of the urethra Speculum Exam - Vagina: normal appearance of the vagina, normal palpation and normal vaginal discharge Speculum Exam - Cervix: normal appearance of the cervix, normal palpation and nontender Bimanual exam- vagina & uterus: normal bimanual exam, normal palpation, uterine size normal, bladder normal to palpation, consistency normal, normal palpation, uterine mobility normal, uterine shape normal, No Cervical tenderness present, non-tender and no cervical motion tenderness Bimanual Exam- Adnexa, other: normal adnexae, no masses, normal and No adnexal tenderness Neuro General: patient oriented x3 Assessment & Plan Assessment & Plan (1) PTSD (post-traumatic stress disorder): Code(s): F43.10 - Post-traumatic stress disorder, unspecified (2) Pelvic pain: Code(s): R10.2 - Pelvic and perineal pain (3) Well woman exam with routine gynecological exam: Code(s): Z01.419 - Encounter for gynecological examination (general) (routine) without abnormal findings (4) Hx of abnormal cervical Pap smear: Code(s): Z87.42 - Personal history of other diseases of the female genital tract (5) H/O: hysterectomy: Comment: Patient states she thought it was related to her history of abnormal Pap smear and then freezing of cervix proceeding to a hysterectomy. Code(s): Z90.710 - Acquired absence of both cervix and uterus Plan -----Discussed in this visit the following: healthy balanced diet, regular and consistent exercise, getting recommended health screens, doing the best she can for her particular health concerns, kegel exercises, pap smear screening and followup recommendations, mammography screening and SBE, normal changes in cycles in her life stage--- . Discussed her concern about her symptoms and suggested ordering a ultrasound to investigate further though I suspect that the scar tissue from her hysterectomy may be what she feels. Externally the scars extremely well healed but it would be normal for there to be adhesions inside that could pull when she is lifting something. Additionally discussed that even though she is postmenopausal there can be subtle minute changes in ovaries from time to time that she may be perceiving. The only way to release rule out anything problematic going on would be to start with a pelvic ultrasound she was traumatized once by having a pelvic ultrasound done at [facility] and an entire class of on lockers were invited in to witness her exam and she was traumatized by the event. Discussed that it is perfectly fine to request that is there be no students in her exam this time and there is no problem with that. Discussed that the ultrasound and sonogram are essentially the same exam and it usually starts with the external exam and then to get a better visualization the internal part of the exam is done but it is all part of the same exam and process. Do not expect any pathology to be found however we will start with that and we will have a visit after to review the results and if she has any other questions or issues she can also discuss with her primary care provider and consider referrals to urology or other specialties she has no urinary or GI symptoms whatsoever Orders: Orders CT NG by PCR Today N89.8 - Other specified noninflammatory disorders of vagina, R10.2 - Pelvic and perineal pain, Z01.419 - Encounter for gynecological examination (general) (routine) without abnormal findings, Z87.42 - Personal history of other diseases of the female genital tract, Z90.710 - Acquired absence of both cervix and uterus US pelvic and transvaginal Today R10.2 - Pelvic and perineal pain, Z01.419 - Encounter for gynecological examination (general) (routine) without abnormal findings, Z87.42 - Personal history of other diseases of the female genital tract, Z90.710 - Acquired absence of both cervix and uterus Bacterial Vaginosis Panel Today N89.8 - Other specified noninflammatory disorders of vagina, R10.2 - Pelvic and perineal pain, Z01.419 - Encounter for gynecological examination (general) (routine) without abnormal findings, Z87.42 - Personal history of other diseases of the female genital tract, Z90.710 - Acquired absence of both cervix and uterus Pap Smear Today Z12.4 - Encounter for screening for malignant neoplasm of cervix Coding Level of Care Code New Pt Prev Care 40-64y(95763) Diagnoses PTSD (post-traumatic stress disorder) F43.10 Pelvic pain R10.2 Well woman exam with routine gynecological exam Z01.419 Hx of abnormal cervical Pap smear Z87.42 H/O: hysterectomy Z90.710
[2023-03-01 11:36] VITALS: BP 124/76; BMI 25.7
== END 2023-03-01 14:19 | disposition home or self-care (01) ==
LOC: HO.HWSM 11:26
PROVIDERS: PCP Internal Medicine; Visit Provider Advanced Practice Midwife
DX: Z01.419 Encounter for gynecological examination (general) (routine) without abnormal findings (principal); R10.2 Pelvic and perineal pain; F43.10 Post-traumatic stress disorder, unspecified
CPT/HCPCS: 99386

== ENCOUNTER 2023-04-03 10:59 | Outpatient (REF) | payer OTHER, SELFPAY ==
--- NOTE | ~2023-04-03 | US_ITS ---
EXAMINATION: US PELVIS CLINICAL INFORMATION: Pelvic and perineal pain; history of prior hysterectomy. COMPARISON: Pelvic ultrasound dated 06/10/2016. TECHNIQUE: Ultrasound of the pelvis is performed using both transabdominal and transvaginal transducers along with Doppler. Transvaginal imaging is performed due to inadequate visualization transabdominally. FINDINGS: Uterus: Surgically absent. Adnexa: Both ovaries are visualized. There is normal color flow to the adnexa. There is no ovarian torsion. There is no pelvic ascites or fluid collection. Right ovary measures 1.4 x 1.2 x 1.0 cm, volume 0.9 mL. Left ovary measures 2.2 x 0.9 x 1.5 cm, volume 1.6 mL. US/US pelvic and transvaginal IMPRESSION: The uterus is surgically absent. The examination is otherwise unremarkable.
== END 2023-04-03 11:00 | disposition home or self-care (01) ==
LOC: HO.US 10:59
PROVIDERS: PCP Internal Medicine; Visit Provider Advanced Practice Midwife
DX: R10.2 Pelvic and perineal pain (principal); Z90.710 Acquired absence of both cervix and uterus; Z87.42 Personal history of other diseases of the female genital tract
CPT/HCPCS: 76830; 76856

== ENCOUNTER 2023-04-18 10:53 | Outpatient (AMB) | payer OTHER, SELFPAY ==
--- NOTE | 2023-04-18 10:55 | MHC.OFFVIS ---
Intake Vital Signs 04/18/23 11:00 Height 5 ft 6 in Weight 159 lb BMI 25.7 BP 120/72 Intake Visit Reasons: US follow up Information Interpreted: clinical only Building Inspection Engineer: Building Inspection Engineer Present Allergies No Known Allergies [No Known Allergies*] Allergy (Verified 04/18/23 10:56) Medication List - Last Reconciled 04/18/23 by Anita Li CNM albuterol sulfate 2.5 mg inhalation Q6H budesonide 90 mcg/actuation 1 inh inhalation BID 30 days Post menopausal: Yes HPI US follow up HPI Details Patient is here for ultrasound follow-up she had an ultrasound because she has recurring discomfort on her left side. She has a history of a hysterectomy. We reviewed the ultrasound and her symptoms she also has a new soft swelling overlying her ribcage on the right side that she is concerned about. She thinks that she has some constipation though her stool is not hard and she goes several times a day but it is small amounts. PFSH Medical History Onychomycosis Pelvic pain in female Hyperkalemia Physical exam Back pain Osteoarthritis Anxiety PTSD (post-traumatic stress disorder) Fingernail problem Right shoulder pain Left shoulder pain Lumbar pain Thoracic spine pain Neck pain Overweight Hypovitaminosis D Mild asthma Surgical History Hx of tubal ligation H/O: hysterectomy Family History Mother High blood pressure Father Cancer Sister Breast cancer Social History Housing: House Alcohol intake: never Patient Tobacco Use Status: Never used Tobacco e-Cigarette/Vaping Use: Never Used Second Hand Smoke Exposure: Yes service: No Current occupational status: employed 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 Current occupational exposures/hazards: No Cognitive needs: No Hearing needs: No Vision needs: No Female Reproductive History Menstrual Age of Menarche: 11 control method: permanent sterilization Total pregnancies: 2 Full term: 2 Ab induced: 1 Ab spontaneous: 1 Date of last pap smear: 03/01/23 (negative,previous pap ,2017 neg.) History of abnormal pap smear: No Physical Exam Vital Signs: Last Vital Signs BP 120/72 04/18/23 11:00 BMI result Body Mass Index 25.7 Const Other: Patient is in no acute distress she pointed to a slight egg shaped and sized soft mass swelling overlying her right ribcage consistent with a possible fatty tissue versus other musculoskeletal mass. Patient points to the area where she sometimes has discomfort as being in her left lower quadrant. Results Reviewed Results Reviewed: Patient: Dixie Galdamez MR#: [id number] : 1965 Acct:[id number] Age/Sex: 57 / F ADM Date: 04/03/23 Loc: .US Attending Dr: Anita Li CNM Ordering Physician: Anita Li CNM Date of Service: 04/03/23 Procedure(s): US pelvic and transvaginal Accession Number(s): [id number] cc: Anita Li CNM; Veena Lauren MD~ EXAMINATION: US PELVIS CLINICAL INFORMATION: Pelvic and perineal pain; history of prior hysterectomy. COMPARISON: Pelvic ultrasound dated 06/10/2016. TECHNIQUE: Ultrasound of the pelvis is performed using both transabdominal and transvaginal transducers along with Doppler. Transvaginal imaging is performed due to inadequate visualization transabdominally. FINDINGS: Uterus: Surgically absent. Adnexa: Both ovaries are visualized. There is normal color flow to the adnexa. There is no ovarian torsion. There is no pelvic ascites or fluid collection. Right ovary measures 1.4 x 1.2 x 1.0 cm, volume 0.9 mL. Left ovary measures 2.2 x 0.9 x 1.5 cm, volume 1.6 mL. US/US pelvic and transvaginal IMPRESSION: The uterus is surgically absent. The examination is otherwise unremarkable. Dictated By: Chalino Liang MD Signed By: <Electronically signed by Chalino Liang MD in OV> 04/05/23 1558 DD/ 1132 TD/TT: Tra Assessment & Plan Assessment & Plan (1) H/O: hysterectomy: Comment: Patient states she thought it was related to her history of abnormal Pap smear and then freezing of cervix proceeding to a hysterectomy.(03/01/2023 Pap is negative with negative HPV. Code(s): Z90.710 - Acquired absence of both cervix and uterus (2) Hx of abnormal cervical Pap smear: Comment: 03/01/2023 Pap is negative with negative HPV. Code(s): Z87.42 - Personal history of other diseases of the female genital tract (3) Pelvic pain: Comment: Completely normal ultrasound uterus surgically absent adnexa unremarkable Code(s): R10.2 - Pelvic and perineal pain Plan I reviewed the patient's ultrasound with her in detail and even showed her the ultrasound and we went over together. Reviewed her symptoms discussed the possibility that it could be gastrointestinal in origin and that simple solutions might involve either prune juice or Metamucil or MiraLax to alleviate any perceived constipation and alternatively if she finds those 2 sweet and objectionable consider just drinking more water an adding more dark green leafy vegetables and vegetables that she needs to chew more into her diet. She is going to see what this does for her but she is also going to speak about this with Dr. Murguia who she is going to see this week. She made the appointment this week because of the concern about the mass on her right side which is soft nontender egg shaped and consistent with the palpation of a fatty tissue. It appeared last week but did not appear after any strain or particular exercise that she was doing. She tells me that she had a colonoscopy about 4 or 5 years ago and everything came out fine and she was told that her next 1 should be in 10 years so there was nothing of note that have been found there either. There was no gynecological finding that could explain her discomfort. Patient will follow-up with her primary care provider. Coding Level of Care Code Est Pt Level 3 (32656) Diagnoses H/O: hysterectomy Z90.710 Hx of abnormal cervical Pap smear Z87.42 Pelvic pain R10.2
[2023-04-18 11:00] VITALS: BP 120/72; BMI 25.7
== END 2023-04-18 11:30 | disposition home or self-care (01) ==
LOC: HO.HWSM 10:53
PROVIDERS: PCP Internal Medicine; Visit Provider Advanced Practice Midwife
DX: Z90.710 Acquired absence of both cervix and uterus (principal); Z87.42 Personal history of other diseases of the female genital tract; R10.2 Pelvic and perineal pain
CPT/HCPCS: 99213

== ENCOUNTER → 2023-04-18 10:53 | Outpatient (BNVA) | payer OTHER, SELFPAY | PROVIDERS: PCP Internal Medicine; Visit Provider Advanced Practice Midwife | DX: R10.2 Pelvic and perineal pain (principal); Z90.710 Acquired absence of both cervix and uterus; Z87.42 Personal history of other diseases of the female genital tract | CPT/HCPCS: 99212 ==

== ENCOUNTER 2023-04-20 12:38 | Outpatient (AMB) | payer OTHER, SELFPAY ==
--- NOTE | 2023-04-20 12:49 | MHC.PC.OV ---
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: No Accompanied by: Self / Same As Patient Allergies No Known Allergies [No Known Allergies*] Allergy (Verified 04/20/23 13:01) Medication List - Last Reconciled 04/20/23 by Veena Pisano MD No Known Home Meds Tobacco use date assessed: 04/20/23 Dental Screening Dental Screen Date: 04/20/23 Did you have a dental visit in the last 12 months?: Yes Did you have a dental problem in the last 6 months where you did not have access to dental care?: No Was dental information given to patient?: Patient has dentist HPI HPI Comments History of Present Illness Details This is a 57-year-old female that complains of a right upper quadrant abdominal mass that she noticed about 1-2 weeks ago. Denies previous trauma. No jaundice. No fever. No change in bowel or bladder habits. It is soft and nontender. It is palpable in clinical exam. [facility] Medical History Onychomycosis Pelvic pain in female Hyperkalemia Physical exam Back pain Osteoarthritis Anxiety PTSD (post-traumatic stress disorder) Fingernail problem Right shoulder pain Left shoulder pain Lumbar pain Thoracic spine pain Neck pain Overweight Hypovitaminosis D Mild asthma Surgical History Hx of tubal ligation H/O: hysterectomy Family History Mother High blood pressure Father Cancer Sister Breast cancer Social History Housing: House Alcohol intake: never Patient Tobacco Use Status: Never used Tobacco e-Cigarette/Vaping Use: Never Used Second Hand Smoke Exposure: Yes service: No Current occupational status: employed 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 1. Little interest or pleasure in doing things: not at all 2. Feeling down, depressed, or hopeless: not at all 3. Trouble falling or staying asleep, or sleeping too much: not at all 4. Feeling tired or having little energy: not at all 5. Poor appetite or overeating: not at all 6. Feeling bad about yourself - or that you are a failure or have let yourself or your family down: not at all 7. Trouble concentrating on things, such as reading the newspaper or watching television: not at all 8. Moving or speaking so slowly that other people could have noticed. Or the opposite - being so fidgety or restless that you have been moving around a lot more than usual: not at all 9. Thoughts that you would be better off or of hurting yourself in some way: not at all Total score: 0 Depression Screening Interpretation: Negative Depression Screening Done: Yes 65457 - PHQ-9 Billing: Yes Source: Developed by Drs. Floyd Garcia, Yumiko Angelo, David Rosales and colleagues, with an educational stanley from [employer]. Thrive Questionnaire Date Thrive assessed: 04/20/23 I am a: Patient What is your living situation today?: I have a steady place to live Within the past 12 months, did the food you bought not last and you didn't have the money to get more?: Never true Within the past 12 months, did you worry whether your food would run out before you got money to buy more?: Never true Do you have trouble paying for medicines?: No Do you have trouble getting transportation to medical appointments?: No Do you have trouble paying your heating and electricity bill?: No Do you have trouble taking care of your child, family member or friend?: No Do you have trouble with day-to-day activities such as bathing, preparing meals, shopping, managing finances, etc.?: No Are you currently unemployed and looking for a job?: No Are you interested in more education?: No Please select the resources that you would like help with: None Currently or been in a relationship where the following occur: no concerns reported THRIVE Score: 0 AUDIT C Alcohol Use Questionnaire (AUDIT-C) 1. How often do you have a drink containing alcohol?: Never Total Score: 0 NATHAN-7 AMB Questionnaire NATHAN-7 Date NATHAN - 7 assessed: 04/20/23 Feeling nervous, anxious, or on edge: 0 = Not at all Not being able to stop or control worryin = Not at all Worrying too much about different things: 0 = Not at all Trouble relaxin = Not at all Being so restless that it is hard to sit still: 0 = Not at all Becoming easily annoyed or irritable: 0 = Not at all Feeling afraid as if something awful might happen: 0 = Not at all Total NATHAN-7 score (0-4 normal; 5-9 mild; 10-14 moderate; 15-21 severe): 0 Source: Developed by Drs. Floyd Garcia, Yumiko Angelo, David Rosales and colleagues, with an educational stanley from [employer]. NATHAN-7 Assessment Billing NATHAN-7 Assessment Tool: NATHAN-7 Assessment 02737 Review of Systems Const All systems reviewed & are unremarkable except as noted in HPI and below Eyes Reports no additional complaints, Denies change in vision and Denies other visual disturbances Card Denies chest pain at rest, Denies chest pain with activity, Denies edema, Denies irregular heart rhythm, Denies claudication, Denies dyspnea, Denies dyspnea on exertion, Denies orthopnea, Denies paroxysmal nocturnal dyspnea and Denies slow heart rate Resp Denies cough, Denies dyspnea and Denies dyspnea on exertion GI Denies abdominal pain, Denies change in bowel habits, Denies excessive flatus, Denies nausea and Denies vomiting Denies urinary incontinence, Denies urinary hesitancy and Denies urinary urgency Musc Denies abnormal gait, Denies atrophy, Denies deformity and Denies limited range of motion Skin/Breast Denies bleeding lesions, Denies changing lesions and Denies rash Neuro Denies abnormal gait, Denies behavioral changes and Denies lack of coordination Psych Denies behavioral changes Physical exam (Primary Care) Vital Signs: Last Vital Signs BP 126/80 04/20/23 12:50 BMI result Body Mass Index 25.5 Tobacco/Smoking Status: Tobacco use Status Tobacco use date assessed 04/20/23 04/20/23 12:55 Patient Tobacco Use Status Never used Tobacco 04/20/23 12:55 e-Cigarette/Vaping Use Never Used 04/20/23 12:55 PHQ-9: PHQ-9 Score PHQ-9: Total score 0 04/20/23 12:55 Depression Screening Interpretation: Negative Thrive Assessment: Date of Thrive Assessment Date Thrive assessed 04/20/23 04/20/23 12:55 Currently or been in a relationship where the following occur: no concerns reported Eyes General: appearance normal, both eyes and all related structures Eyelids: Yes eyelids normal Conjunctivae: conjunctivae normal Neck Neck: Yes normal visual inspection and Yes supple Resp Effort & Inspection: normal respiratory effort Auscultation: clear to auscultation bilaterally Cardio Jugular venous distension: no JVD Rate: regular rate Rhythm: regular rhythm Heart sounds: S1 normal heart sound present and S2 normal heart sound present GI Other: Right upper quadrant protuberance that is soft and nontender Palpation (GI): Soft to palpation and nontender Auscultation: normal bowel sounds Extrem General: Yes full ROM Assessment and Plan Assessment & Plan (1) Right upper quadrant abdominal mass: Code(s): R19.01 - Right upper quadrant abdominal swelling, mass and lump Plan: Ultrasound of the abdomen ordered Orders: Orders US abdomen complete Today R19.01 - Right upper quadrant abdominal swelling, mass and lump Coding Level of Care Code Est Pt Level 3 (38495) Diagnoses Right upper quadrant abdominal mass R19.01 Additional Codes NATHAN-7 Assessment Billing - NATHAN-7 Assessment Tool: NATHAN-7 Assessment 69290 ([id number]) Time Spent (min) 18
[2023-04-20 12:50] VITALS: BP 126/80; BMI 25.5
== END 2023-04-20 13:08 | disposition home or self-care (01) ==
PROVIDERS: PCP Internal Medicine; Visit Provider Internal Medicine
DX: R19.01 Right upper quadrant abdominal swelling, mass and lump (principal)
CPT/HCPCS: 99213

== ENCOUNTER 2023-05-17 10:30 | Outpatient (REF) | payer OTHER, SELFPAY ==
--- NOTE | ~2023-05-17 | US_ITS ---
EXAMINATION: US ABDOMEN LIMITED CLINICAL INFORMATION: Right upper quadrant abdominal swelling, mass and lump. COMPARISON: None available. TECHNIQUE: Real-time imaging of the region of concern at the right lower rib cage. FINDINGS: Corresponding with palpable abnormality is a solid well-defined lesion measuring approximately 2.3 x 0.8 x 3.1 cm. This lesion demonstrates some thin internal echogenicities. There is no color flow associated with this structure. There is no adjacent well organized fluid collection. No lymphadenopathy appreciated. US/US abdomen limited IMPRESSION: Palpable abnormality corresponds with a well-defined 3.1 cm lesion. This is a nonspecific finding but may represent a lipoma. If this lesion enlarges or becomes painful, further evaluation can be obtained with MRI imaging without and with gadolinium. Alternatively, follow-up imaging can be obtained as clinically indicated.
== END 2023-05-17 10:31 | disposition home or self-care (01) ==
LOC: HO.US 10:30
PROVIDERS: PCP Internal Medicine; Visit Provider Internal Medicine
DX: R19.01 Right upper quadrant abdominal swelling, mass and lump (principal)
CPT/HCPCS: 76705

== ENCOUNTER 2023-09-25 10:50 | Outpatient (REF) | payer OTHER, SELFPAY | END 2023-09-25 10:51 | disposition home or self-care (01) | LOC: HO.MAMMO 10:50 | PROVIDERS: PCP Internal Medicine; Visit Provider Internal Medicine | DX: Z12.31 Encounter for screening mammogram for malignant neoplasm of breast (principal) | CPT/HCPCS: 77063; 77067 ==

== ENCOUNTER → 2023-09-25 11:00 | Outpatient (BNV) | payer OTHER, SELFPAY | PROVIDERS: PCP Internal Medicine; Visit Provider Radiology Diagnostic Radiology | DX: Z12.31 Encounter for screening mammogram for malignant neoplasm of breast (principal) | CPT/HCPCS: 77063; 77067 ==

== ENCOUNTER 2023-10-04 09:33 | Outpatient (AMB) | payer OTHER, SELFPAY ==
[2023-10-04 09:35] VITALS: BP 112/70; BMI 25.8
--- NOTE | 2023-10-04 09:35 | MHC.PC.OV ---
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 Mammogram done last month and results are still pending. Pap smear done 2023 and was normal. Colonoscopy done 2018 and needs to be repeated this year due to family history of colon cancer. Denies any chest pain or shortness on breath. Doing well. Has a lipoma in abdominal wall that has stayed the same but she is concerned about it and will be refer to general surgery for further evaluation and management. [facility] Medical History (Updated 10/04/23 @ 10:45 by Veena Pisano MD) Physical exam Onychomycosis Pelvic pain in female Hyperkalemia Back pain Osteoarthritis Anxiety PTSD (post-traumatic stress disorder) Fingernail problem Right shoulder pain Left shoulder pain Lumbar pain Thoracic spine pain Neck pain Overweight Hypovitaminosis D Mild asthma Surgical History Hx of tubal ligation H/O: hysterectomy Family History Mother High blood pressure Father Cancer Sister Breast cancer Social History Housing: House Alcohol intake: never Patient Tobacco Use Status: Never used Tobacco e-Cigarette/Vaping Use: Never Used Second Hand Smoke Exposure: Yes service: No Current occupational status: employed 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 Floyd Garcia, Yumiko Angelo, David Rosales and colleagues, with an educational stanley from [employer]. Review of Systems Const All systems reviewed & are unremarkable except as noted in HPI and below Card Denies chest pain at rest, Denies chest pain with activity, Denies edema, Denies irregular heart rhythm, Denies claudication, Denies dyspnea, Denies dyspnea on exertion, Denies orthopnea, Denies paroxysmal nocturnal dyspnea and Denies slow heart rate Resp Denies cough, Denies dyspnea and Denies dyspnea on exertion GI Denies abdominal pain, Denies change in bowel habits, Denies excessive flatus, Denies nausea and Denies vomiting Denies urinary incontinence, Denies urinary hesitancy and Denies urinary urgency Musc Denies abnormal gait, Denies atrophy, Denies deformity and Denies limited range of motion Skin/Breast Denies bleeding lesions, Denies changing lesions and Denies rash Neuro Denies abnormal gait, Denies behavioral changes and Denies lack of coordination Psych Denies behavioral changes Physical exam (Primary Care) Vital Signs: Last Vital Signs BP 112/70 10/04/23 09:35 BMI result Body Mass Index 25.8 Tobacco/Smoking Status: Tobacco use Status Tobacco use date assessed 04/20/23 10/04/23 09:38 Patient Tobacco Use Status Never used Tobacco 10/04/23 09:38 e-Cigarette/Vaping Use Never Used 10/04/23 09:38 Thrive Assessment: Date of Thrive Assessment Date Thrive assessed 04/20/23 10/04/23 09:38 [facility] Head: Yes normal to inspection, Yes normocephalic and Yes atraumatic Ears: external ears normal Eyes General: appearance normal, both eyes and all related structures Eyelids: Yes eyelids normal Conjunctivae: conjunctivae normal Neck Neck: Yes normal visual inspection and Yes supple Resp Effort & Inspection: normal respiratory effort Auscultation: clear to auscultation bilaterally Cardio Jugular venous distension: no JVD Rate: regular rate Rhythm: regular rhythm Heart sounds: S1 normal heart sound present and S2 normal heart sound present GI Inspection: Yes normal to inspection Palpation (GI): Soft to palpation, nontender and Palpable mass present RUQ Auscultation: normal bowel sounds Skin General skin exam: no rashes or lesions noted Neuro General: no focal motor deficits Extrem General: Yes full ROM Psych Appearance: grossly normal Assessment and Plan Assessment & Plan (1) Physical exam: Code(s): Z00.00 - Encounter for general adult medical examination without abnormal findings Plan: Repeat in a year. (2) Lipoma: Code(s): D17.9 - Benign lipomatous neoplasm, unspecified Plan: Referred to general surgery. Orders: Orders XR DEXA axial skeleton Today N95.9 - Unspecified menopausal and perimenopausal disorder Comprehensive Rosser. Panel Fast Today Z00.00 - Encounter for general adult medical examination without abnormal findings Lipid Panel Today E78.5 - Hyperlipidemia, unspecified, Z00.00 - Encounter for general adult medical examination without abnormal findings Referrals General Surgery Referral D17.9 - Benign lipomatous neoplasm, unspecified Open Access Screening Colonoscopy Referral Z12.11 - Encounter for screening for malignant neoplasm of colon Coding Level of Care Code Est Pt Level 3 (97968) Est Pt Prev Care 40-64y(58495) Diagnoses Physical exam Z00.00 Lipoma D17.9 Time Spent (min) 33
== END 2023-10-04 10:11 | disposition home or self-care (01) ==
PROVIDERS: PCP Internal Medicine; Visit Provider Internal Medicine
DX: Z00.00 Encounter for general adult medical examination without abnormal findings (principal); D17.9 Benign lipomatous neoplasm, unspecified
CPT/HCPCS: 99396

== ENCOUNTER 2023-10-11 09:33 | Outpatient (AMB) | payer OTHER, SELFPAY ==
--- NOTE | 2023-10-11 09:34 | MHC.OFFVIS ---
Vital Signs 10/11/23 09:39 Height 5 ft 6 in Weight 160 lb BMI 25.8 BP 129/61 Blood Pressure Location Rt brachial Position Sitting Pulse 85 Intake Visit Reasons: lipoma of the abdomen Intake Note: Patient referred by pcp Dr. Blade Pisano for lipoma on abdomen. Present for 1yr. Patient c/o: asymtomatic. Patient just wishes to know what it is. Anatomic Pathologist Required: Yes Anatomic Pathologist Name: Vanessa FRIEDMAN Accompanied by: Self / Same As Patient Allergies No Known Allergies [No Known Allergies*] Allergy (Verified 10/11/23 09:38) HPI Comments Details: Patient presents for evaluation of abdominal wall mass/lipoma patient had this several years time. His increasing in size, become more symptomatic. She is considering having it removed. She has no such lesions elsewhere. Chart was reviewed and patient evaluated [facility] Medical History (Updated 10/04/23 @ 10:45 by Veena Pisano MD) Physical exam Onychomycosis Pelvic pain in female Hyperkalemia Back pain Osteoarthritis Anxiety PTSD (post-traumatic stress disorder) Fingernail problem Right shoulder pain Left shoulder pain Lumbar pain Thoracic spine pain Neck pain Overweight Hypovitaminosis D Mild asthma Surgical History (Updated 10/11/23 @ 10:00 by Usama Fofana MD) Hx of tubal ligation H/O: hysterectomy Family History Mother High blood pressure Father Cancer Sister Breast cancer Social History Housing: House Alcohol intake: never Patient Tobacco Use Status: Never used Tobacco e-Cigarette/Vaping Use: Never Used Second Hand Smoke Exposure: Yes service: No Current occupational status: employed 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 Assessment & Plan Assessment & Plan (1) Lipoma: Code(s): D17.9 - Benign lipomatous neoplasm, unspecified Category: Surgical (2) Right upper quadrant abdominal mass: Code(s): R19.01 - Right upper quadrant abdominal swelling, mass and lump Category: Surgical Plan Therapeutic options were reviewed the patient including observation or excision. She would like to think these over. Should she would like to have this removed, this can be done as an office procedure. She has been given my card and number and will contact us should she wished to pursue this. All questions answered. Coding Level of Care Code New Pt Level 4 (64218) Diagnoses Lipoma D17.9 Right upper quadrant abdominal mass R19.01
[2023-10-11 09:39] VITALS: BP 129/61; PULSE 85; BMI 25.8
== END 2023-10-11 09:54 | disposition home or self-care (01) ==
PROVIDERS: PCP Internal Medicine; Referring Provider Internal Medicine; Visit Provider Surgery
DX: D17.9 Benign lipomatous neoplasm, unspecified (principal); R19.01 Right upper quadrant abdominal swelling, mass and lump
CPT/HCPCS: 99203

== ENCOUNTER → 2023-10-11 09:33 | Outpatient (BNVA) | payer OTHER, SELFPAY | PROVIDERS: PCP Internal Medicine; Referring Provider Internal Medicine; Visit Provider Surgery | DX: D17.9 Benign lipomatous neoplasm, unspecified (principal); R19.01 Right upper quadrant abdominal swelling, mass and lump | CPT/HCPCS: 99202 ==

== ENCOUNTER 2023-10-25 08:58 | Outpatient (REF) | payer OTHER, SELFPAY ==
--- NOTE | ~2023-10-25 | MM_ITS ---
EXAMINATION: BONE DENSITOMETRY CLINICAL INDICATION: Menopause. COMPARISON: This is the patient's baseline examination. TECHNIQUE: Using a Devicescape DXA System (software version: 13.1) manufactured by [employer], dual-energy x-ray absorptiometry was performed of the lumbar spine and left hip. The images are of good technical quality. Summary results are attached. FINDINGS: LEFT FEMUR, NECK: BMD 1.090 g/cm2, Z-score 1.4, T-score 0.4, normal. LEFT FEMUR, TOTAL: BMD 1.175 g/cm2, Z-score 2.0, T-score 1.3, normal. AP SPINE L1-L4: BMD 1.427 g/cm2, Z-score 2.8, T-score 2.1, normal. IDENTIFIED RISK FACTORS: Early menopause, hysterectomy, secondary osteoporosis. HISTORY OF FRACTURE: None listed. MEDICATIONS: Vitamin D. MM/XR DEXA axial skeleton IMPRESSION: 1. DIAGNOSIS: Normal bone density based on the lowest T-score value of 0.4 in the femoral neck applying World Health Organization criteria. 2. 10-YEAR FRACTURE RISK PREDICTION, FRAX: According to the guidelines, FRAX calculation should only be performed on patients in the osteopenia bone density category. Therefore, FRAX was not performed on this patient. 3. Treatment Recommendations: NOF guidelines recommend consideration for treatment in postmenopausal women and men age 50 and older presenting with the following: -A hip or vertebral (clinical or morphometric) fracture. -T-score less than or equal to -2.5 at the femoral neck or spine after appropriate evaluation to exclude secondary causes. -Low bone mass at the hip or spine and a 10-year fracture probability by FRAX of greater than or equal to 3% for hip fracture or greater than or equal to 20% for major osteoporotic fracture based on the [place] adapted WHO algorithm. 4. Other Recommendations: All treatment decisions require clinical judgment and consideration of individual patient factors, including patient preferences, comorbidities, previous drug use, risk factors not captured in the FRAX model (e.g. frailty, falls, vitamin D deficiency, increased bone turnover, interval significant decline in bone density) and possible under or overestimation of fracture risk by FRAX. FUTURE SCAN RECOMMENDATION: People with diagnosed cases of osteoporosis or at high risk for fracture should have regular bone mineral density tests. For patients eligible for Medicare, routine testing is allowed once every 2 years. The testing frequency can be increased to one year for patients who have rapidly progressing disease, those who are receiving or discontinuing medical therapy to restore bone mass, or have additional risk factors. Electronically signed by: Horace Monk MD 10/31/2023 11:03 AM OTF
== END 2023-10-25 08:59 | disposition home or self-care (01) ==
LOC: HO.MAMMO 08:58
PROVIDERS: PCP Internal Medicine; Visit Provider Internal Medicine
DX: Z13.820 Encounter for screening for osteoporosis (principal); Z78.0 Asymptomatic menopausal state
CPT/HCPCS: 77080

== ENCOUNTER 2023-11-14 10:26 | Outpatient (REF) | payer OTHER, SELFPAY | END 2023-11-14 10:27 | disposition home or self-care (01) | LOC: HO.LNP 10:26 | PROVIDERS: PCP Internal Medicine; Visit Provider Surgery | DX: D17.1 Benign lipomatous neoplasm of skin and subcutaneous tissue of trunk (principal) | CPT/HCPCS: 11406; 88304 ==

== ENCOUNTER 2023-11-14 10:26 | Outpatient (AMB) | payer OTHER, SELFPAY ==
--- NOTE | 2023-11-14 10:26 | MHC.OFFVIS ---
Vital Signs 11/14/23 10:31 Height 5 ft 6 in Weight 161 lb BMI 26.0 BP 135/63 Blood Pressure Location Rt brachial Position Sitting Pulse 94 Intake Visit Reasons: Exc lipoma~ Rt upper abd Intake Note: Patient here s/p WLE of lipoma on right upper arm. Reports incision healing well. Patient c/o: has work paperwork. Platform Man Required: No Accompanied by: Russel son Allergies No Known Allergies [No Known Allergies*] Allergy (Verified 11/14/23 10:31) Medication List - Last Reconciled 11/14/23 by Usama Fofana MD No Known Home Meds HPI Comments Details: Patient was seen a few weeks ago. She now presents for in office excision of a symptomatic right upper quadrant abdominal wall lipoma. Risks, benefits, alternatives of the procedure reviewed with the patient included but not limited to bleeding, infection, recurrence, numbness, pain, scarring the patient wished to proceed. All questions answered. Consent signed. [facility] Medical History (Updated 10/04/23 @ 10:45 by Veena Pisano MD) Physical exam Onychomycosis Pelvic pain in female Hyperkalemia Back pain Osteoarthritis Anxiety PTSD (post-traumatic stress disorder) Fingernail problem Right shoulder pain Left shoulder pain Lumbar pain Thoracic spine pain Neck pain Overweight Hypovitaminosis D Mild asthma Surgical History (Updated 10/11/23 @ 10:00 by Usama Fofana MD) Hx of tubal ligation H/O: hysterectomy Family History Mother High blood pressure Father Cancer Sister Breast cancer Social History Housing: House Alcohol intake: never Patient Tobacco Use Status: Never used Tobacco e-Cigarette/Vaping Use: Never Used Second Hand Smoke Exposure: Yes service: No Current occupational status: employed 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 Specimen sent to pathology. Wound was irrigated, secured hemostasis, and closed using running 3-0 Vicryl suture followed by Steri-Strips and sterile dressings. Patient tolerated procedure well. 64369-qghsr/arms/legs >4cm Procedure code (CPT) selection complete Office Meds lidocaine 1 %-epinephrine 1:100,000 injection solution Performing Provider: Usama Fofana MD [place] [facility] [place] [facility] Administered by: Usama Fofana MD on 11/14/23 12:59 Dose Route Admin Location Dispensed Lot Number Expiration Date NDC [place] Nurse 30 mL Infiltration 30 mL Assessment & Plan Assessment & Plan (1) Lipoma: Code(s): D17.9 - Benign lipomatous neoplasm, unspecified Category: Surgical Plan: Patient was been given local instructions including Tylenol or Motrin p.r.n. pain, isolated wound, may shower in 2 days removing only outside dressing leaving Steri-Strips intact, and avoiding strenuous activities. Patient will see me as directed or p.r.n. Orders: Orders Surgical Today D17.9 - Benign lipomatous neoplasm, unspecified AMB Excision Today D17.9 - Benign lipomatous neoplasm, unspecified Medications: New lidocaine-epinephrine 1 %-1:100,000 30 mL Infiltration ONCE 30 mL 0RF D17.9 - Benign lipomatous neoplasm, unspecified Coding Level of Care Code Est Pt Level 5 (18039) Diagnoses Lipoma D17.9 CPT Codes Trunk/Arms/Legs - CPT: 27677-ayiwl/arms/legs >4cm ([id number])
[2023-11-14 10:31] VITALS: BP 135/63; PULSE 94; BMI 26.0
== END 2023-11-14 11:07 | disposition home or self-care (01) ==
PROVIDERS: PCP Internal Medicine; Visit Provider Surgery
DX: D17.1 Benign lipomatous neoplasm of skin and subcutaneous tissue of trunk (principal)
CPT/HCPCS: 11406

== ENCOUNTER 2023-11-20 09:30 | Outpatient (AMB) | payer OTHER, SELFPAY ==
--- NOTE | 2023-11-20 09:35 | A.OFFVIS_ITS ---
Vital Signs 11/20/23 09:36 Height 5 ft 6 in Weight 161 lb BMI 26.0 BP 134/63 Blood Pressure Location Rt brachial Position Sitting Pulse 92 Intake Visit Reasons: Exc lipoma~ Rt upper abd Intake Note: Patient here s/p WLE lipoma on RUQ. Reports incision healing well. Patient c/o: itch along steris. Office Automation Technician Required: No Accompanied by: Son Allergies No Known Allergies [No Known Allergies*] Allergy (Verified 11/20/23 09:36) HPI Comments Details: Patient presents with the son for follow-up. She has no wound issues or complaints. Pathology was benign. [facility] Medical History (Updated 10/04/23 @ 10:45 by Veena Pisano MD) Physical exam Onychomycosis Pelvic pain in female Hyperkalemia Back pain Osteoarthritis Anxiety PTSD (post-traumatic stress disorder) Fingernail problem Right shoulder pain Left shoulder pain Lumbar pain Thoracic spine pain Neck pain Overweight Hypovitaminosis D Mild asthma Surgical History (Updated 11/20/23 @ 09:43 by Usama Fofana MD) Hx of surgical procedure (11/14/23) Hx of tubal ligation H/O: hysterectomy Family History Mother High blood pressure Father Cancer Sister Breast cancer Social History Housing: House Alcohol intake: never Patient Tobacco Use Status: Never used Tobacco e-Cigarette/Vaping Use: Never Used Second Hand Smoke Exposure: Yes service: No Current occupational status: employed 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 There is a very small seroma which will be treated conservatively. Assessment & Plan Assessment & Plan (1) Postop check: Code(s): Z09 - Encounter for follow-up examination after completed treatment for conditions other than malignant neoplasm Category: Surgical Plan Patient and son have been given local instructions, avoiding strenuous activities next few weeks time, and otherwise follow-up p.r.n.. All questions answered Coding Level of Care Code Global (64182) Diagnoses Postop check Z09
[2023-11-20 09:36] VITALS: BP 134/63; PULSE 92; BMI 26.0
== END 2023-11-20 09:46 | disposition home or self-care (01) ==
PROVIDERS: PCP Internal Medicine; Visit Provider Surgery
DX: Z09 Encounter for follow-up examination after completed treatment for conditions other than malignant neoplasm (principal)
CPT/HCPCS: 99024

== ENCOUNTER → 2023-11-20 09:30 | Outpatient (BNVA) | payer OTHER, SELFPAY | PROVIDERS: PCP Internal Medicine; Visit Provider Surgery | DX: Z09 Encounter for follow-up examination after completed treatment for conditions other than malignant neoplasm (principal) | CPT/HCPCS: 99212 ==

== ENCOUNTER 2024-05-13 10:55 | Outpatient (AMB) | payer OTHER, SELFPAY ==
--- NOTE | 2024-05-13 10:55 | MHC.OFFVIS ---
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 She went to the [facility] today's appointment is scheduled at 05:01.. She is not having any bioinformatics developer problems at all. She had surgery to remove a lipoma on her right upper abdomen, but she does not remember who did it . She has been getting her mammograms and they are fine she sees her primary care provider and does not have any health problems she is not sexually active and has not been since 2021 she is not worried about any infection but would like testing for anything done that can be done today. I reviewed with her what she can remember of her bioinformatics developer history she had a hysterectomy done in [place] many years ago she can not remember exactly when but it was maybe in the early 2 thousands she says it was done for heavy bleeding she says she did have a problem with abnormal Pap smears and they froze something offer cervix years ago but she does not remember when and she says she had normal Pap smears more recently before the hysterectomy. We did a Pap smear last year and it was negative with negative HPV from the vaginal cuff, in addition I ordered an ultrasound last year and that was within normal limits surgically absent uterus. [facility] Medical History Physical exam Onychomycosis Pelvic pain in female Hyperkalemia Back pain Osteoarthritis Anxiety PTSD (post-traumatic stress disorder) Fingernail problem Right shoulder pain Left shoulder pain Lumbar pain Thoracic spine pain Neck pain Overweight Hypovitaminosis D Mild asthma Surgical History Hx of surgical procedure (11/14/23) Hx of tubal ligation H/O: hysterectomy Family History Mother High blood pressure Father Cancer Sister Breast cancer Social History Housing: House Alcohol intake: never Patient Tobacco Use Status: Never used Tobacco e-Cigarette/Vaping Use: Never Used Second Hand Smoke Exposure: Yes service: No Current occupational status: employed 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 Current occupational exposures/hazards: No Cognitive needs: No Hearing needs: No Vision needs: No Female Reproductive History Menstrual Age of Menarche: 11 Total pregnancies: 2 Full term: 2 Ab spontaneous: 1 Multiple births: 1 Date of last pap smear: 03/01/23 (negative pap smear, negative hpv ) History of abnormal pap smear: Yes Date of Mammogram: 09/25/23 (bi rad 1) Date of last Bone Density Screenin10/25/23 Physical Exam Vital Signs: Last Vital Signs BP 124/68 05/13/24 10:59 BMI result Body Mass Index 26.6 Const General: healthy appearing, comfortable, no acute distress, well developed and alert Nutritional Appearance: average body habitus Orientation/consciousness: patient oriented x3 Limitations: no limitations HEENT Head: Yes normocephalic Neck Neck: Yes normal visual inspection Chest Other: Scar on right upper abdomen below breasts from removal of lipoma. No masses palpated in either breast. Chest palpation & inspection: normal inspection of the chest Breast/axilla inspection: normal inspection of the breasts and normal inspection of the axillae Breast/axilla palpation: normal palpation of the breasts and normal palpation of the axillae Resp Effort & Inspection: normal respiratory effort GI Inspection: Yes normal to inspection, No Abdominal wall edema and No distended Palpation (GI): Soft to palpation and nontender Other: Normal external exam vagina is pink thin white discharge consistent with normal postmenopausal changes some atrophic vaginal changes evident vaginal cuff scar slightly tender with Q-tips swabbing. No organomegaly adnexa nontender nonenlarged good muscle tone with Kegel. External Female Exam: normal external appearance and normal appearance of the urethra Speculum Exam - Vagina: normal appearance of the vagina and normal vaginal discharge Bimanual Exam- Adnexa, other: normal adnexae, no masses, normal and No adnexal tenderness Neuro General: patient oriented x3 Assessment & Plan Assessment & Plan (1) H/O: hysterectomy: Comment: Patient states she thought it was related to her history of abnormal Pap smear and then freezing of cervix proceeding to a hysterectomy.(03/01/2023 Pap is negative with negative HPV. Code(s): Z90.710 - Acquired absence of both cervix and uterus Category: Surgical (2) Well woman exam with routine gynecological exam: Code(s): Z01.419 - Encounter for gynecological examination (general) (routine) without abnormal findings Category: Medical (3) Hx of abnormal cervical Pap smear: Comment: 03/01/2023 Pap is negative with negative HPV. Code(s): Z87.42 - Personal history of other diseases of the female genital tract Category: Medical (4) Breast cancer screening: Code(s): Z12.39 - Encounter for other screening for malignant neoplasm of breast Category: Medical Plan Patient is here for bioinformatics developer annual exam. She went to the [facility] 1st today's appointment is scheduled at 05:01.. She is not having any bioinformatics developer problems at all. She had surgery to remove a lipoma on her right upper abdomen, but she does not remember who did it . She has been getting her mammograms and they are fine she sees her primary care provider and does not have any health problems she is not sexually active and has not been since 2021 she is not worried about any infection but would like testing for anything done that can be done today. I reviewed with her what she can remember of her bioinformatics developer history she had a hysterectomy done in [place] many years ago she can not remember exactly when but it was maybe in the early 2 thousands she says it was done for heavy bleeding she says she did have a problem with abnormal Pap smears and they froze something offer cervix years ago but she does not remember when and she says she had normal Pap smears more recently before the hysterectomy. We did a Pap smear last year and it was negative with negative HPV from the vaginal cuff, in addition I ordered an ultrasound last year and that was within normal limits surgically absent uterus. Discussed the postmenopausal atrophic vaginal changes. Discussed that her next Pap smear should be in 2 years. Given that she is not sexually active is not having any bioinformatics developer problems gets her regular mammograms sees her primary care provider once a year maintains her health with healthy walking and a healthy high-fiber diet that is preventing any problems with constipation this year then she may not need a bioinformatics developer exam for another 2 years patient given the option to schedule in 1 or 2 years also discussed the postmenopausal atrophic changes. For next visit consider Anil speculum for vaginal cuff Pap Timeframe/Date Comment 2 yrs bioinformatics developer annual w vag cuff pap Coding Level of Care Code Est Pt Prev Care 40-64y(33845) Diagnoses H/O: hysterectomy Z90.710 Well woman exam with routine gynecological exam Z01.419 Hx of abnormal cervical Pap smear Z87.42 Breast cancer screening Z12.39
[2024-05-13 10:59] VITALS: BP 124/68; BMI 26.6
--- OUTSIDE RECORDS SUMMARY | 2024-05-13 12:34 | XMS_ITS | Encounter Summary ---
Author Organization [employer] [facility] Address [address] [facility] [address] [place] [address] Care Team Providers Care Medical Research Associate Name Role Phone Unavailable Primary Care Provider Unavailabl e Encounter Details Date Type Department Care Team (Latest Contact Info) Description 01/14/2021 Abstract [facility] CONVERSIONS Dental, Provider, DDS Social History Tobacco Use Types Packs/Day Years Used Date Smoking Tobacco: Never Assessed Comments Unknown Sex and Gender Information Value Date Recorded Sex Assigned at Female 12/27/2021 10:30 AM EDT Legal Sex Female 10:30 AM EDT Gender Identity Choose not to disclose 2 10:30 AM EDT Sexual Orientation Choose not to disclose 2021 10:30 AM EDT documented as of this encounter Plan of Treatment Not on file documented as of this encounter Visit Diagnoses Not on filedocumented in this encounter
--- OUTSIDE RECORDS SUMMARY | 2024-05-13 12:34 | XMS_ITS | Clinical Summary ---
Author Organization [employer] [facility] Address [address] [place] [address] [address] [place] [address] Care Team Providers Care Junior Sales Representative Name Role Phone Unavailable Primary Care Provider Unavailabl e Allergies No known active allergies Medications No known medications Active Problems No known active problems Social History Tobacco Use Types Packs/Day Years Used Date Smoking Tobacco: Never Passive Smoke Exposure: Never Smokeless Tobacco: Never Tobacco Cessation:Counseling Given: Not Answered Comments Unknown Sex and Gender Information Value Date Recorded Sex Assigned at Female 12/27/2021 10:30 AM EDT Legal Sex Female 10:30 AM EDT Gender Identity Choose not to disclose 10:30 AM EDT Sexual Orientation Choose not to disclose 2021 10:30 AM EDT Last Filed Vital Signs Vital Sign Reading Time Taken Comments Blood Pressure 104/62 08/31/2022 10:10 AM EDT Pulse 60 08/31/2022 10:10 AM EDT Temperature - - Respiratory Rate - - Oxygen Saturation - - Inhaled Oxygen Concentration - - Weight - - Height - - Body Mass Index - - Plan of Treatment Health Maintenance Due Date Last Done Comments CT Colonography 1965 Colonoscopy 1965 Colorectal Cancer Screening 1965 Depression Screening 1965 FIT DNA/Cologuard 1965 FIT 1965 FOBT 1965 HIV Screening 1965 SDOH Screening 1965 Sigmoidoscopy 1965 Alcohol/Substance Use Screening 1977 Hepatitis C Screening 10/14/1983 Hepatitis B Vaccines (1 of 3 - 19+ 3-dose series) 1984 Pap Smear 1986 Cervical Cancer Screening 10/14/1995 HPV/Cotest 10/14/1995 Mammogram 2005 Pneumococcal Vaccine: 50+ Years (1 of 1 - PCV) 10/14/2015 Zoster Vaccines (1 of 2) 10/14/2015 DTaP/Tdap/Td Vaccines (1 - Tdap) 07/17/2017 07/16/2017 Dental Oral Exam 03/04/2023 08/31/2022, 06/2022, 10/24/2018, Additional history exists Dental Prophylaxis 03/04/2023 08/31/2022, 0 08/03/2021, 01/14/2021, Additional history exists Dental X-Ray: Bitewings 09/02/2023 09/01/19 23, 01/14/2021, 10/24/2018 COVID-19 Vaccine ( - season) 2023 Influenza Vaccine (#1) 2023 Dental X-Ray: Full Mouth 01/16/2024 01/14/2021, 01/27 Tobacco Screening 11/07/2024 11/08/2023 RSV Patients and Patients Aged 60 years or older (1 - 1-dose 75+ series) 2040 HIB Vaccines Aged Out No longer eligi ble based on patient's age to complete this topic HPV Vaccines Aged Out No longer eligi ble based on patient's age to complete this topic Hepatitis A Vaccines Aged Out No long er eligible based on patient's age to complete this topic IPV Vaccines Aged Out No longer eligi ble based on patient's age to complete this topic Meningococcal Vaccine Aged Out No ashley whitney eligible based on patient's age to complete this topic RSV under 20 months Aged Out No longe r eligible based on patient's age to complete this topic Rotavirus Vaccines Aged Out No longer eligible based on patient's age to complete this topic Procedures Procedure Name Priority Date/Time Associated Diagnosis Comments PROPHYLAXIS - ADULT Routine 08/31/2022 1 0:00 AM EDT Encounter for dental examination Localized gingival recession BITEWINGS - 4 RADIOGRAPHIC IMAGES Routine 08/31/2022 10:00 AM EDT Encounter for dental examination Localized gingival recession PERIODIC ORAL EVALUATION - ESTABLISHED PATIENT Routine 08/31/2022 10:00 AM EDT Encounter for dental examination Localized gingival recession INTRAORAL - COMPLETE SERIES OF RADIOGRAPHIC IMAGES Routine 01/14/2021 12:00 AM EST from Last 3 Months or Most Recently Relevant to Health Maintenance Insurance [facility] FULL (MEDICAID)
--- OUTSIDE RECORDS SUMMARY | 2024-05-13 12:34 | XMS_ITS | Encounter Summary ---
Author Organization [employer] [facility] Address [address] [place] [address] Care Team Providers Care Slackman Name Role Phone Unavailable Primary Care Provider Unavailabl e Encounter Details Date Type Department Care Team (Latest Contact Info) Description 12/04/2018 Abstract [facility] CONVERSIONS Dental, Provider, DDS Social History [...]
== END 2024-05-13 11:33 | disposition home or self-care (01) ==
LOC: HO.HWS 10:55
PROVIDERS: PCP Internal Medicine; Visit Provider Advanced Practice Midwife
DX: Z01.419 Encounter for gynecological examination (general) (routine) without abnormal findings (principal)
CPT/HCPCS: 99396; 99459

== ENCOUNTER 2024-05-13 10:55 | Outpatient (REF) | payer OTHER, SELFPAY ==
[2024-05-14 10:54] LABS: Bacterial Vaginosis PCR NEGATIVE (Negative); Candida Group PCR NOT DETECTED (Not Detect); Candida glab krusei PCR NOT DETECTED (Not Detect); Trichomonas vaginalis PCR NOT DETECTED (Not Detect)
== END 2024-05-13 10:56 | disposition home or self-care (01) ==
LOC: HO.LNP 10:55
PROVIDERS: PCP Internal Medicine; Visit Provider Advanced Practice Midwife
DX: Z01.419 Encounter for gynecological examination (general) (routine) without abnormal findings (principal); Z90.710 Acquired absence of both cervix and uterus; Z87.42 Personal history of other diseases of the female genital tract
CPT/HCPCS: 81515; 99396; 99459

== ENCOUNTER 2024-10-01 10:52 | Outpatient (REF) | payer OTHER, SELFPAY ==
--- OUTSIDE RECORDS SUMMARY | 2024-10-01 11:38 | XMS_ITS | Encounter Summary ---
Author Organization [employer] [facility] Address [address] [place] [address] Care Team Providers Care Transportation Design Engineer Name Role Phone Unavailable Primary Care Provider Unavailabl e Encounter Details Date Type Department Care Team (Latest Contact Info) Description 01/14/2021 Abstract [facility] CONVERSIONS Dental, Provider, DDS Social History Tobacco [...]
== END 2024-10-01 10:53 | disposition home or self-care (01) ==
LOC: HO.MAMMO 10:52
PROVIDERS: PCP Internal Medicine; Visit Provider Internal Medicine
DX: Z12.31 Encounter for screening mammogram for malignant neoplasm of breast (principal)
CPT/HCPCS: 77063; 77067

== ENCOUNTER → 2024-10-01 11:00 | Outpatient (BNV) | payer OTHER, SELFPAY | PROVIDERS: PCP Internal Medicine; Visit Provider Internal Medicine | DX: Z12.31 Encounter for screening mammogram for malignant neoplasm of breast (principal) | CPT/HCPCS: 77063; 77067 ==

== ENCOUNTER 2024-10-10 10:18 | Outpatient (AMB) | payer OTHER, SELFPAY ==
[2024-10-10 10:28] VITALS: BP 120/76; PULSE 86; RESP 18; O2SAT 96; BMI 26.1
--- NOTE | 2024-10-10 10:28 | MHC.PC.OV ---
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 Accompanied by: Self / Same As Patient Allergies No Known Allergies (No Known Allergies*) Allergy (Verified 10/10/24 10:36) Medication List - Last Reconciled 10/10/24 by Veena Pisano MD No Known Home Meds Tobacco use date assessed: 10/10/24 Dental Screening Dental Screen Date: 10/10/24 Did you have a dental visit in the last 12 months?: No Did you have a dental problem in the last 6 months where you did not have access to dental care?: No Was dental information given to patient?: No HPI HPI Comments History of Present Illness Details The patient is a 58-year-old female presenting for a physical examination and preventative care. She has a history of lipoma removal and underwent a hysterectomy last year. Her last colonoscopy was in 2019, which was excellent, but a repeat was suggested due to her father's history of colon cancer diagnosed at an advanced age. Her mother is alive with hypertension, and her father from colon cancer. She is not allergic to any medications and does not take any medications currently. She had a Pap smear last year, which was normal with HPV negative, and a mammogram this month, with results pending. Her bone density test last year was normal, indicating no osteoporosis or osteopenia. The patient reports having had COVID-19 previously and emphasizes the importance of vaccination, stating that she takes all vaccines to avoid illness. [facility] Medical History Physical exam Onychomycosis Pelvic pain in female Hyperkalemia Back pain Osteoarthritis Anxiety PTSD (post-traumatic stress disorder) Fingernail problem Right shoulder pain Left shoulder pain Lumbar pain Thoracic spine pain Neck pain Overweight Hypovitaminosis D Mild asthma Surgical History Hx of surgical procedure (11/14/23) Hx of tubal ligation H/O: hysterectomy Family History Mother High blood pressure Father Cancer Sister Breast cancer Social History Housing: House Alcohol intake: never Patient Tobacco Use Status: Never used Tobacco e-Cigarette/Vaping Use: Never Used Second Hand Smoke Exposure: Yes service: No Current occupational status: employed Current occupation: [employer] Current occupational exposures/hazards: No Cognitive needs: No Hearing needs: No Vision needs: No Female Reproductive History Menstrual Age of Menarche: 11 Questionnaire PHQ-9 Over the last 2 weeks, how often have you been bothered by any of the following problems? 1. Little interest or pleasure in doing things: not at all 2. Feeling down, depressed, or hopeless: not at all 3. Trouble falling or staying asleep, or sleeping too much: not at all 4. Feeling tired or having little energy: not at all 5. Poor appetite or overeating: not at all 6. Feeling bad about yourself - or that you are a failure or have let yourself or your family down: not at all 7. Trouble concentrating on things, such as reading the newspaper or watching television: not at all 8. Moving or speaking so slowly that other people could have noticed. Or the opposite - being so fidgety or restless that you have been moving around a lot more than usual: not at all 9. Thoughts that you would be better off or of hurting yourself in some way: not at all Total score: 0 Depression Screening Interpretation: Negative Depression Screening Done: Yes 47824 - PHQ-9 Billing: Yes Source: Developed by Drs. Floyd Garcia, Yumiko Angelo, David Rosales and colleagues, with an educational stanley from [employer]. Thrive Questionnaire Date Thrive assessed: 10/10/24 I am a: Patient What is your living situation today?: I choose not to answer this question Within the past 12 months, did the food you bought not last and you didn't have the money to get more?: I choose not to answer this question Within the past 12 months, did you worry whether your food would run out before you got money to buy more?: I choose not to answer this question Do you have trouble paying for medicines?: I choose not to answer this question Do you have trouble getting transportation to medical appointments?: No Do you have trouble paying your heating and electricity bill?: I choose not to answer this question Do you have trouble taking care of your child, family member or friend?: I choose not to answer this question Do you have trouble with day-to-day activities such as bathing, preparing meals, shopping, managing finances, etc.?: No Are you currently unemployed and looking for a job?: No Are you interested in more education?: I choose not to answer this question Please select the resources that you would like help with: None Currently or been in a relationship where the following occur: I choose not to answer THRIVE Score: 0 AUDIT C Alcohol Use Questionnaire (AUDIT-C) 1. How often do you have a drink containing alcohol?: Never 3. How often do you have six or more drinks on one occasion?: Never Total Score: 0 Score Reviewed/Action Taken: No NATHAN-7 AMB Questionnaire NATHAN-7 Date NATHAN - 7 assessed: 10/10/24 Feeling nervous, anxious, or on edge: 0 = Not at all Not being able to stop or control worryin = Not at all Worrying too much about different things: 0 = Not at all Trouble relaxin = Not at all Being so restless that it is hard to sit still: 0 = Not at all Becoming easily annoyed or irritable: 0 = Not at all Feeling afraid as if something awful might happen: 0 = Not at all Total NATHAN-7 score (0-4 normal; 5-9 mild; 10-14 moderate; 15-21 severe): 0 Source: Developed by Drs. Floyd Garcia, Yumiko Angelo, David Rosales and colleagues, with an educational stanley from [employer]. NATHAN-7 Assessment Billing NATHAN-7 Assessment Tool: NATHAN-7 Assessment 73896 Review of Systems Const All systems reviewed & are unremarkable except as noted in HPI and below Card Denies chest pain at rest, Denies chest pain with activity, Denies edema, Denies irregular heart rhythm, Denies claudication, Denies dyspnea, Denies dyspnea on exertion, Denies orthopnea, Denies paroxysmal nocturnal dyspnea and Denies slow heart rate Resp Denies cough, Denies dyspnea and Denies dyspnea on exertion Physical exam (Primary Care) Vital Signs: Last Vital Signs Pulse 86 08/14/25 10:28 Resp 18 10/10/24 10:28 BP 120/76 10/10/24 10:28 Pulse Ox 96 10/10/24 10:28 Oxygen Delivery Method Room Air 10/10/24 10:28 BMI result Body Mass Index 26.1 Tobacco/Smoking Status: Tobacco use Status Tobacco use date assessed 10/10/24 10/10/24 10:34 Patient Tobacco Use Status Never used Tobacco 10/10/24 10:34 e-Cigarette/Vaping Use Never Used 10/10/24 10:34 PHQ-9: PHQ-9 Score PHQ-9: Total score 0 10/10/24 10:34 Depression Screening Interpretation: Negative Thrive Assessment: Date of Thrive Assessment Date Thrive assessed 10/10/24 10/10/24 10:34 Currently or been in a relationship where the following occur: I choose not to answer HENMT Head: Yes normal to inspection, Yes normocephalic and Yes atraumatic Ears: external ears normal Eyes General: appearance normal, both eyes and all related structures Eyelids: Yes eyelids normal Conjunctivae: conjunctivae normal Neck Neck: Yes normal visual inspection and Yes supple Resp Effort & Inspection: normal respiratory effort Auscultation: clear to auscultation bilaterally Cardio Jugular venous distension: no JVD Rate: regular rate Rhythm: regular rhythm Heart sounds: S1 normal heart sound present and S2 normal heart sound present GI Inspection: Yes normal to inspection Palpation (GI): Soft to palpation and nontender Auscultation: normal bowel sounds Skin General skin exam: no rashes or lesions noted Neuro General: no focal motor deficits Extrem General: Yes full ROM Psych Appearance: grossly normal Coding Level of Care Code Est Pt Prev Care 40-64y(97456) Diagnoses Physical exam Z00.00 Additional Codes PHQ-9 - 36792 - PHQ-9 Billing: Yes ([id number]) NATHAN-7 Assessment Billing - NATHAN-7 Assessment Tool: NATHAN-7 Assessment 04298 ([id number]) Time Spent (min) 30 Assessment & Plan Assessment & Plan (1) Physical exam: Code(s): Z00.00 - Encounter for general adult medical examination without abnormal findings Category: Medical Plan The patient will continue with regular preventative screenings, including a mammogram and colonoscopy, due to family history of colon cancer. Routine laboratory tests including cholesterol, glucose, renal, and liver function tests are recommended, as it has been some time since the last evaluation. The patient is advised to maintain her vaccination schedule, particularly emphasizing the importance of COVID-19 vaccination to prevent illness. Patient was informed and verbally consented to the use of an ambient scribe for clinic note documentation during this visit. Orders: Orders Lipid Panel Today Z00.00 - Encounter for general adult medical examination without abnormal findings Comprehensive Hope. Panel Fast Today Z00.00 - Encounter for general adult medical examination without abnormal findings
== END 2024-10-10 10:48 | disposition home or self-care (01) ==
PROVIDERS: PCP Internal Medicine; Visit Provider Internal Medicine
DX: Z00.00 Encounter for general adult medical examination without abnormal findings (principal)

== ENCOUNTER → 2024-10-10 10:18 | Outpatient (BNVA) | payer OTHER, SELFPAY | PROVIDERS: PCP Internal Medicine; Visit Provider Internal Medicine | DX: Z00.00 Encounter for general adult medical examination without abnormal findings (principal); I10 Essential (primary) hypertension | CPT/HCPCS: 96127; 99396 ==

== ENCOUNTER 2024-11-12 10:37 | Outpatient (REF) | payer OTHER, SELFPAY ==
[2024-11-12 12:07] LABS: Alanine Aminotransferase 15 U/L (0-31); Albumin Level 4.2 g/dL (3.5-5.0); Alkaline Phosphatase 75 U/L (39-117); Anion Gap 9 (12-20); Aspartate Amino Transferase 21 U/L (5-31); Blood Urea Nitrogen 13 mg/dL (9-16); Calcium 9.3 mg/dL (8.4-10.2); Carbon Dioxide 31 mmol/L (22-29); Chloride 108 mmol/L (96-108); Cholesterol 207 mg/dL (<200); Estimated Glomerular Filt Rate 57; HDL Cholesterol 53 mg/dL (>40); Potassium 4.9 mmol/L (3.3-5.1); Sodium 143 mmol/L (135-145); Total Protein 6.8 g/dL (6.5-8.0); Triglycerides 106 mg/dL (<150)
--- OUTSIDE RECORDS SUMMARY | 2024-11-12 14:07 | XMS_ITS | Clinical Summary ---
Author Organization [employer] [facility] Address [address] [place] [address] [address] [place] [address] Care Team Providers Care Caddie Supervisor Name Role Phone Unavailable Primary Care Provider [...] Screening 1965 SDOH Screening 1965 Sigmoidoscopy 1965 Disability Screening 1965 Alcohol/Substance Use Screening 1977 Hepatitis C [...] X-Ray: Bitewings 09/02/2023 09/01/19 23, 01/14/2021, 10/24/2018 Dental X-Ray: Full Mouth 01/16/2024 01/14/2021, 01/27 COVID-19 Vaccine ( - season) 2024 Influenza Vaccine (#1) 2024 Tobacco Screening 11/07/2024 11/08/2023 RSV Patients and [...] patient's age to complete this topic Meningococcal B Vaccine Aged Out No l onger eligible based on patient's age to complete [...] Most Recently Relevant to Health Maintenance [facility]MEDICAID)
--- OUTSIDE RECORDS SUMMARY | 2024-11-12 14:07 | XMS_ITS | Encounter Summary ---
Author Organization [employer] [facility] Address [address] [place] [address] Care Team Providers Care Residence Supervisor Name Role Phone Unavailable Primary Care [...]
--- OUTSIDE RECORDS SUMMARY | 2024-11-12 14:07 | XMS_ITS | Encounter Summary ---
Author Organization [employer] [facility] Address [address] [place] [address] Care Team Providers Care Corporate Administrative Assistant Name Role Phone Unavailable Primary Care Provider Unavailabl e Encounter Details Date Type Department Care Team (Latest Contact Info) Description 12/04/2018 Abstract C CONVERSIONS Dental, Provider, DDS Social [...]
== END 2024-11-12 10:38 | disposition home or self-care (01) ==
LOC: HO.LAB 10:37
PROVIDERS: PCP Internal Medicine; Visit Provider Internal Medicine
DX: Z00.00 Encounter for general adult medical examination without abnormal findings (principal)
CPT/HCPCS: 36415; 80053; 80061